=== PATIENT | male | born 1940 | race African-American/Black ===

== ENCOUNTER 2019-10-08 22:54 | Emergency (ER) | payer MEDICARE, MEDICAID, SELFPAY ==
--- NOTE | ~2019-10-08 | CT_ITS ---
EXAMINATION: CT brain wo con DATE: 10/08/2019 23:45 INDICATION: Recent episodes of weakness. Fall. TECHNIQUE: Computed tomography (CT) of the head was performed without intravenous contrast. Sagittal and coronal reconstructions were performed. The mA was adjusted according to patient size. Iterative reconstruction technique was employed. The dose-length product was 681.00 mGy-cm. COMPARISON: head CT dated 08/13/2016 FINDINGS: No fracture. No acute intracranial hemorrhage, acute infarction or abnormal extra axial fluid collect ion. Small old lacunar infarct at the right thalamus. There is moderate scattered white matter hypoat tenuation consistent with chronic small vessel ischemic disease. Symmetric prominence of the sulci an d ventricles consistent with moderate age-appropriate diffuse cerebral volume loss. No mass/mass effe ct. Changes of bilateral intraocular lens replacement. The orbits, paranasal sinuses and mastoid air cells are normal. Intracranial calcified cerebral atherosclerosis is noted. IMPRESSION: 1. No fracture or acute intracranial process. 2. Small old right thalamic lacunar infarct. 3. Chronic age related changes including moderate diffuse volume loss and moderate scattered white ma tter hypoattenuation consistent with chronic small vessel ischemic disease. Reviewed, dictated and finalized at location A. [employer]ATE QUALITY MANAGER IMPRESSION: 1. No fracture or acute intracranial process. 2. Small old right thalamic lacunar infarct. 3. Chronic age related changes including moderate diffuse volume loss and moder ate scattered white matter hypoattenuation consistent with chronic small vessel ischemic disease.
[2019-10-08 22:52] VITALS: BP 146/76; PULSE 86; RESP 21; TEMP 36.7; O2SAT 95
--- NOTE | 2019-10-08 23:09 | ED.FALL ---
HPI - Fall General Chief Complaint: Fall Stated Complaint: gen weakness Time Seen by Provider: 10/08/19 23:10 Source: patient and RN notes reviewed Mode of arrival: EMS Limitations: other (pt is a poor historian) History of Present Illness HPI Narrative: Pt is a 79 y/o male with a Hx of gout, who presents to the ED via EMS with c/o fall happening this evening. He notes that he has had difficulty walking for awhile. Pt states that he accidentally rolled out of his bed this evening. He states that he was too weak to get himself up after the fall. Pt denies sustaining any injuries during the fall. He does report generalized weakness, chronic low back pain, and diarrhea starting after the fall. HPI limited due to the pt being a poor historian. MD complaint: fall Fall from: out of bed Place fall occurred: [facility] Context: other (unknown) Associated symptoms (after fall): weakness (generalized) and other (diarrhea; low back pain (chronic)) Related Data Allergies Allergy/AdvReac Type Severity Reaction Status Date / Time No Known Drug Allergies Allergy Unknown Verified 06/22/19 10:04 Review of Systems Review of Systems: Narrative: ROS limited due to the pt being a poor historian. Constitutional: Constitutional: Reports weakness (generalized) Gastrointestinal: Gastrointestinal: Reports diarrhea Musculoskeletal: Musculoskeletal: Reports back pain (low back pain (chronic)) PMFSH Past Medical History Medical History Anemia Cataracts, bilateral Duodenal ulcer, unspecified as acute or chronic, without hemorrhage or perforation Essential (primary) hypertension Gout, unspecified Iron deficiency anemia Irritable bowel syndrome with diarrhea Nicotine dependence Osteoarthritis Sickle cell disease Surgical History Surgical History Hx of spinal surgery Social History Social History Social History: Pt states that it takes about 3-4 days to smoke a pack of cigarettes Smoking status: Current every day smoker Second hand tobacco smoke exposure: No Alcohol intake: current Exam Narrative: Exam Narrative: GENERAL: Well-appearing, well-nourished, and in no acute distress. HEAD: Normocephalic, atraumatic. ENT: Mucous membranes moist. CHEST: Clear to auscultation. No respiratory distress. HEART: Regular rate and rhythm. Normal peripheral pulses. ABDOMEN: Soft, nontender, nondistended. Back: No midline tenderness of the T or L-spine. No reproducible paraspinal muscular tenderness. EXTREMITIES: Normal range of motion. No edema. No tenderness. NEURO: Alert and oriented x3. PSYCH: Normal mood and affect. Course Course Emergency Course: Patient able ambulate with a walker. Unremarkable evaluation. Vital Signs Vital signs: Vital Signs Temperature 98.1 F 10/08/19 22:52 Pulse Rate 86 10/08/19 22:52 Respiratory Rate 21 H 10/08/19 22:52 Blood Pressure 146/76 H 10/08/19 22:52 Pulse Oximetry 95 10/08/19 22:52 Temperature 98.1 F 10/08/19 22:52 Pulse Rate 88 10/09/19 01:11 Respiratory Rate 20 10/09/19 01:11 Blood Pressure 146/79 H 10/09/19 01:11 Pulse Oximetry 94 10/09/19 01:11 MDM - Fall Lab Data Result diagrams: 10/08/19 23:32 10/08/19 23:32 Labs: Lab Results 10/08/19 10/08/19 Range/Units 23:32 23:32 WBC 4.7 (4.5-10.0) K/mm3 RBC 3.26 L (4.6-6.20) M/mm3 Hgb 10.8 L (14.0-18.0) g/dL Hct 32.6 L (42.0-52.0) % MCV 100.0 (80-100) fl MCH 33.1 (26-34) pg MCHC 33.1 (32-36) g/dl RDW 18.9 H (11.5-14.5) % Plt Count 261 (150-375) k/mm3 MPV 10.4 (7.4-10.4) fl Immature Gran % (Auto) 0.4 (0-0.5) % Neut % (Auto) 47.8 (45.5-73.1) % Lymph % (Auto) 39.8 (18.3-44.2) % [place] % (Auto) 7.5 (2.6-8.5) % Eos % (Auto) 3.9 (0-4.4) % Baso % (Auto) 0.6 (0.2-1.2)
[2019-10-08 23:51] LABS: Blood Urea Nitrogen 12 mg/dL (9-20); Calcium 9.1 mg/dL (8.4-10.2); Carbon Dioxide 20 mmol/L (22-30); Chloride 108 mmol/L (98-107); Estimated Glomerular Filt Rate > 60; Glucose 79 mg/dL (75-110); Potassium 4.5 mmol/L (3.4-5.0); Sodium 144 mmol/L (137-145)
--- NOTE | 2019-10-09 | PC.NURSE ---
pt asked to urinate pt stated he is unable to void at this time.
[2019-10-09 00:04] LABS: Basophils Percent Auto 0.6 % (0.2-1.2); Eosinophils Absolute Auto 0.2 K/mm3 (0-0.3); Eosinophils Percent Auto 3.9 % (0-4.4); Hematocrit 32.6 % (42.0-52.0); Hemoglobin 10.8 g/dL (14.0-18.0); Immature Granulocyte Absolute 0.02 K/mm3 (0.00-0.031); Immature Granulocyte Percent A 0.4 % (0-0.5); Lymphocytes Absolute Auto 1.85 K/mm3 (0.9-3.2); Lymphocytes Percent Auto 39.8 % (18.3-44.2); Mean Corpuscular HGB Conc 33.1 g/dl (32-36); Mean Corpuscular Hemoglobin 33.1 pg (26-34); Mean Platelet Volume 10.4 fl (7.4-10.4); Monocytes Absolute Auto 0.4 K/mm3 (0.1-0.6); Monocytes Percent Auto 7.5 % (2.6-8.5); Neutrophils Absolute Auto 2.2 K/mm3 (1.3-6.7); Neutrophils Percent Auto 47.8 % (45.5-73.1); Platelet Count Result 261 k/mm3 (150-375); Red Blood Count 3.26 M/mm3 (4.6-6.20); Red Cell Distribution Width 18.9 % (11.5-14.5); White Blood Count 4.7 K/mm3 (4.5-10.0)
--- NOTE | 2019-10-09 00:38 | PC.NURSE ---
pt given a urinal pt stood up to urinate. pt unable to void. pt refusing straight cath. EDP notified.
[2019-10-09 00:45] VITALS: BP 139/85; BP 150/86; BP 152/93; PULSE 116; PULSE 91; PULSE 94
[2019-10-09 01:11] VITALS: BP 146/79; PULSE 88; RESP 20; O2SAT 94
[2019-10-09 02:20] VITALS: BP 152/82; PULSE 97; RESP 21; O2SAT 97
--- NOTE | 2019-10-09 02:33 | PC.NURSE ---
Called [facility] to transport patient to his residence...ETA 30 minutes
--- NOTE | 2019-10-09 03:03 | ECG_ITS ---
Measurements Intervals [place] Rate: 85 P: 44 W[place]: 177 QRS: -36 QRSD: 146 T: 44 QT: 426 QTc: 507 Interpretive Statements SINUS RHYTHM VENTRICULAR PREMATURE COMPLEXES POSSIBLE LEFT ATRIAL ENLARGEMENT LEFT AXIS DEVIATION RIGHT BUNDLE BRANCH BLOCK BORDERLINE ST-T WAVE ABNORMALITY- INFERIOR LEADS BASELINE ARTIFACT- I, II, AVR ABNORMAL ECG Electronically Signed On 10-09-2019 7:00:14 BRICK PAVING CHECKER by Kota Cheney D.O.
== END 2019-10-09 03:18 | disposition home or self-care (01) ==
PROVIDERS: Emergency Provider Emergency Medicine; PCP Family Medicine
DX: M54.5 Low back pain (principal); G89.29 Other chronic pain; F17.210 Nicotine dependence, cigarettes, uncomplicated; I10 Essential (primary) hypertension; M10.9 Gout, unspecified; D50.9 Iron deficiency anemia, unspecified; M19.90 Unspecified osteoarthritis, unspecified site; D57.1 Sickle-cell disease without crisis; I49.3 Ventricular premature depolarization; I45.10 Unspecified right bundle-branch block; W06.XXXA Fall from bed, initial encounter; R94.31 Abnormal electrocardiogram [ECG] [EKG]
CPT/HCPCS: 36415; 70450; 80048; 85025; 93005; 99284

== ENCOUNTER 2020-02-29 10:10 | Inpatient (IN) | payer MEDICARE, MEDICAID, SELFPAY ==
[2020-02-29] VITALS (17 sets, daily range): BP systolic 99–150; BP diastolic 56–80; PULSE 55–99; RESP 14–21; TEMP 35.9–37.3; O2SAT 94–100; BMI 24.6
--- NOTE | ~2020-02-29 | CT_ITS ---
EXAMINATION: CT brain wo con EXAM DATE: 02/29/2020 11:18 INDICATION: Weakness. TECHNIQUE: Spiral CT of the head was performed without contrast. Axial, coronal and sagittal images were reviewed. The dose-length product (DLP) for this examination was 605.33 mGy-cm. The exposure w as tailored according to patient size, and iterative reconstruction (ASIR) was used as additional dos e reduction technique. Comparison is made to prior examination from 10/08/2019. FINDINGS: There is no acute intraparenchymal hemorrhage. No evidence of intraparenchymal brain mass lesion. No evidence of acute infarction. Please note that initial head CT has limited sensitivity f or small or acute infarctions. 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 There is moderate pe riventricular and subcortical hypodensity, nonspecific but probably related to small vessel ischemic disease. There is moderate prominence of the sulci and ventricles related to cerebral atrophy. Some falx dural calcifications. There is intracranial carotid arteriosclerosis. There are no extra-axia l collections. There is no mass effect or midline shift. Patient has had bilateral ocular lens surg ayad. Soft tissue is unremarkable. The visualized sinuses and mastoid air cells are well aerated. No significant interval change. IMPRESSION: 1. 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 2. Chronic age related findings. Reviewed, dictated and finalized at location B.
--- NOTE | ~2020-02-29 | XR_ITS ---
EXAMINATION: XR chest 1V portable EXAM DATE: 02/29/2020 11:16 INDICATION: Weakness. TECHNIQUE: Portable AP frontal chest x-ray was obtained. Comparison is made to prior examination from 06/22/2019. FINDINGS: The cardiomediastinal silhouette is prominent but magnified on this AP technique. Prominent basilar reticulation likely patient's chronic interstitial lung disease. No confluent consolidation, pneumothorax or pleural effusion suspected. Left axillary surgical clips. There are bony degenerativ e changes. Thoracic spondylosis, bridging osteophytes. IMPRESSION: 1. Chronic interstitial lung disease. Reviewed, dictated and finalized at location B.
--- NOTE | ~2020-02-29 | CT_ITS ---
EXAMINATION: CT abdomen pelvis w con EXAM DATE: 02/29/2020 13:24 INDICATION: Elevated lactate, GI bleed. TECHNIQUE: Spiral CT of the abdomen and pelvis was performed following intravenous injection of 100 m L Omnipaque 350. Axial, coronal and sagittal images were reviewed. The dose-length product (DLP) fo r this examination was 449.79 mGy-cm. The exposure was tailored according to patient size (auto mA e xposure control), and iterative reconstruction (ASIR) was used as additional dose reduction technique . Comparison is made to prior examination from 06/25/2019. FINDINGS: There is hepatic steatosis without suspicious focal lesion identified. Spleen, adrenal glan ds, pancreas are unremarkable. There is punctate cholelithiasis. Lobular exophytic left renal lesio n measuring 2.8 cm, 57 Hounsfield units, enhancing and most likely renal cell cancer. No obstructive nephropathy. The prostate is unremarkable. The bladder is unremarkable. There is no retroperitonea l or pelvic lymphadenopathy. There is moderate scattered arteriosclerotic disease. The left common femoral artery is severely stenotic or completely occluded. The appendix is normal. The stomach and small bowel are unremarkable. Moderately distended rectosig moid colon, rectal vault measuring 7 cm in dimension, with tortuous sigmoid colon. There is inflammat ion surrounding the rectosigmoid colon, could be stercoral colitis. Most of the colon is relatively c ollapsed. Small foci of gas at the anal verge probably external to the patient. No free intraperitone al gas. Enlarged heart size. There has been interval resolution of previously seen pleural effusion s. Mild basilar interstitial lung disease without superimposed acute process. There are no osteobla stic or osteolytic lesions identified. IMPRESSION: 1. Moderately distended rectosigmoid colon with perirectal inflammation, evidence of stercoral colit is. 2. Left-sided enhancing renal mass, likely RCC. 3. Left common femoral severe stenosis or occlusion. 4. Cholelithiasis. Reviewed, dictated and finalized at location B. IMPRESSION: 1. Moderately distended rectosigmoid colon with perirectal inflammation, evide nce of stercoral colitis. 2. Left-sided enhancing renal mass, likely RCC. 3. Left common femoral severe stenosis or occlusion. 4. Cholelithiasis.
--- NOTE | 2020-02-29 10:29 | ECG_ITS ---
Measurements Intervals [place] Rate: 75 P: 43 ID: 170 QRS: 93 QRSD: 140 T: 0 QT: 448 QTc: 501 Interpretive Statements SINUS RHYTHM VENTRICULAR PREMATURE COMPLEX POSSIBLE LEFT ATRIAL ENLARGEMENT RIGHT BUNDLE BRANCH BLOCK ST-T WAVE ABNORMALITY IN ANTEROLATERAL LEADS- CONSIDER ISCHEMIA ABNORMAL ECG Electronically Signed On 02-29-2020 11:15:59 CDT by Kota Cheney D.O.
[2020-02-29 10:51] LABS: Add Urine Microscopic? YES; Appearance Urine Clear (Clear); Bilirubin Urine Negative (Negative); Blood Urine Negative (Negative); Color Urine Yellow (Yellow); Glucose Urine UA Negative (Negative); Ketones Urine Trace mg/dL (Negative); Leukocyte Esterase Ur Negative LEU/UL (Negative); Mucus Urine Rare /lpf; Nitrate Urine Negative (Negative); Protein Urine Negative (Negative); RBC Urine 0-2 /hpf (0-2); Specific Grav Ur 1.014 (1.001-1.035); Squamous Epithelial Cell Urine Rare /hpf (Few); WBC Urine 0-3 /hpf
[2020-02-29 11:09] LABS: Basophils Percent Auto 0.7 % (0.2-1.2); Eosinophils Percent Auto 0.5 % (0-4.4); Immature Granulocyte Absolute 0.03 K/mm3 (0.00-0.031); Immature Granulocyte Percent A 0.5 % (0-0.5); Lymphocytes Absolute Auto 0.69 K/mm3 (0.9-3.2); Lymphocytes Percent Auto 12.2 % (18.3-44.2); Mean Corpuscular HGB Conc 28.5 g/dl (32-36); Mean Corpuscular Volume 87.7 fl (80-100); Mean Platelet Volume 10.7 fl (7.4-10.4); Monocytes Absolute Auto 0.5 K/mm3 (0.1-0.6); Monocytes Percent Auto 8.5 % (2.6-8.5); Neutrophils Absolute Auto 4.4 K/mm3 (1.3-6.7); Neutrophils Percent Auto 77.6 % (45.5-73.1); Platelet Count Result 288 k/mm3 (150-375); Red Blood Count 2.36 M/mm3 (4.6-6.20); Red Cell Distribution Width 19.7 % (11.5-14.5); White Blood Count 5.7 K/mm3 (4.5-10.0)
[2020-02-29 11:22] LABS: Alanine Aminotransferase 18 U/L (4-50); Alkaline Phosphatase 76 U/L (38-126); Aspartate Amino Transferase 59 U/L (17-59); Bilirubin,Total 0.6 mg/dL (0.2-1.3); Blood Urea Nitrogen 24 mg/dL (9-20); Carbon Dioxide 20 mmol/L (22-30); Chloride 109 mmol/L (98-107); Estimated CRCL calculation 30 ml/min; Estimated Glomerular Filt Rate 44; Glucose 108 mg/dL (75-110); Lipase 22 U/L (23-300); Magnesium 1.8 mg/dL (1.6-2.3); Potassium 4.2 mmol/L (3.4-5.0); Sodium 141 mmol/L (137-145)
[2020-02-29 11:23] LABS: Hematocrit 20.7 % (42.0-52.0); Hemoglobin 5.9 g/dL (14.0-18.0)
[2020-02-29] MEDS: PANTOPRAZOLE SODIUM IV 40 MG VIAL 80 MG IV PUSH (11:25)
[2020-02-29 11:26] LABS: Lactic Acid Reflex 3.2 mmol/L (0.7-2.1)
[2020-02-29 11:27] LABS: INR 1.1
[2020-02-29 11:28] LABS: Partial Thromboplastin Time 26.5 SECONDS (22.3-36.8)
[2020-02-29 11:33] LABS: Hypochromasia 2+ (NORMAL); Platelet Estimate Adequate (Adequate)
[2020-02-29 11:34] LABS: Ovalocytes 1+ (NORMAL); Stomatocytes 2+ (NORMAL)
--- NOTE | 2020-02-29 12:31 | ED.WEAKNESS ---
HPI - Weakness General Chief complaint: Weakness Stated complaint: WEAKNESS Time Seen by Provider: 02/29/20 10:26 Source: patient and EMS Mode of arrival: EMS Limitations: other (poor historian) History of Present Illness HPI Narrative: This patient is an 79 year old male who presents for evaluation of generalized weakness. EMS states patient states he is not feeling well, and he was last seen on Saturday normal. EMS found patient to be hypotensive with BP 80/40. He was given 200 ml of fluids and his blood pressure improved. Nursing staff found that patient has melena in his depends. He denies chest pain, sob, fever, or abdominal pain. He does have nausea. On review of his records, patient has history of duodenal ulcer last year. MD Complaint: generalized weakness Related Data Allergies Allergy/AdvReac Type Severity Reaction Status Date / Time No Known Drug Allergies Allergy Unknown Verified 06/22/19 10:04 Review of Systems Review of Systems: All systems reviewed & are unremarkable except as noted in HPI and below Constitutional: Constitutional: Denies chills, Denies fever(s) and Reports weakness Cardiovascular: Cardiovascular: Denies chest pain Respiratory: Respiratory: Denies cough and Denies dyspnea Gastrointestinal: Gastrointestinal: Denies abdominal pain, Reports nausea and Denies vomiting Neurologic: Denies headache(s), Denies focal weakness and Denies numbness Endocrine: Endocrine: Reports fatigue PMFSH Past Medical History Medical History Anemia Cataracts, bilateral Duodenal ulcer, unspecified as acute or chronic, without hemorrhage or perforation Essential (primary) hypertension Gout, unspecified Iron deficiency anemia Irritable bowel syndrome with diarrhea Nicotine dependence Osteoarthritis Sickle cell disease Social History Social History Social History: Pt states that it takes about 3-4 days to smoke a pack of cigarettes Smoking status: Current every day smoker Second hand tobacco smoke exposure: No Alcohol intake: current Gender identity (if verbalized by the patient): Male Exam Const: General: no acute distress and alert Orientation/consciousness: patient oriented x3 HENMT: Head: normocephalic and atraumatic Face and sinus: face symmetric Mouth: Yes lip normal Teeth and gingiva: edentulous Eyes: Pupils: Equal, round and reactive pupils present EOM: EOMs intact bilaterally Chest: Chest palpation & inspection: normal inspection of the chest Resp: Effort & Inspection: normal respiratory effort, no retractions and no use of accessory muscles Auscultation: clear to auscultation bilaterally Cardio: Rate: regular rate Rhythm: regular rhythm Heart sounds: no murmurs GI: GI Palp: Yes Soft to palpation, No Tenderness to palpation present (GI), No Guarding due to palpation present (GI) and No Rigid due to palpation Other: black tarry stools in depends Skin: General skin exam: normal color Neuro: General: patient oriented x3 and moves all extremities Extrem: General: no pedal edema Psych: Mental Status: mental status grossly normal Affect: normal affect Course Consultations Consultation #1: I discussed case with Dr. Magaña and he recommends CT to evaluate for bowel ischemia Date: 02/29/20 Time: 12:31 Consultation #2: I have discsused elevated troponin with Serena Beltran who agrees to consult. Date: 02/29/20 Time: 14:46 Vital Signs Vital signs: Vital Signs Temperature 98.8 F 02/29/20 10:08 Pulse Rate 79 02/29/20 10:08 Respiratory Rate 21 H 02/29/20 10:08 Blood Pressure 99/57 L 02/29/20 10:08 Pulse Oximetry 94 02/29/20 10:08 Temperature 96.6 F L 02/29/20 17:36 Pulse Rate 84 02/29/20 17:36 Respiratory Rate 20 02/29/20 17:36 Blood Pressure 149/77 H 02/29/20 17:36 Pulse Oximetry 95 02/29/20 17:36 MDM - Weakness
[2020-02-29 14:17] LABS: Reflex Lactic Acid Yes or No Add Lactic
--- NOTE | 2020-02-29 14:51 | PC.NURSE ---
1450 large bowel movement noted new diaper and pad applied
[2020-02-29 16:17] LABS: Lactic Acid 2.1 mmol/L (0.7-2.1)
[2020-02-29 17:53] LABS: Hematocrit 22.3 % (42.0-52.0)
[2020-02-29 17:58] LABS: Hemoglobin 6.3 g/dL (14.0-18.0)
[2020-02-29] MEDS: LACTATED RINGERS 1,000 ML 125 ML IV CONT (18:56)
--- NOTE | 2020-02-29 19:10 | PM.IMHP ---
H&P: HPI History of Present Illness Chief complaint: uoper gi hemmorhage,anemia,elevated troponin Narrative: Rick Martinez is a 79 year old male with hx of GI bleed and CAD here for generalized weakness and found to have Hgb 5.9 and elevated Troponin. Noam is alert and oriented but very difficult to obtain history. Patient is extremely vague and even evasive. Talib lives in the [place] [facility] and has a wound care center consultant 4x/week to come in to help with meal prep and cleaning. Patient states he contacted EMS because he couldn't stand up but this has been going on for the past 1-2 months. He is mostly bedbound but later states he walks with a walker. He has been having black stools but takes iron and the duration of this symptoms is unclear. He denies maroon or red stools. No abd pain but having nausea and vomiting. no blood in the emesis but again unclear on duration. No fever or chills. He is on protonix (from the pill bottles brought in) but he is not sure if he takes NSAIDs. He has been having chest pain off and on but he can provide no further details. The attempt to obtain a hx was abandoned at that point. On chart review, joanna had an EGD in 2014 showing duodenal polyps that were removed. More recently in Sep 2018, he was hospitalized for GI bleed. He had a EGD that was normal and a colonoscopy showing IH (with stigmata of bleeding) and with sigmoid polyp that was removed (path was tubular adenomas). Patient noted to be iron deficient in June 2019. LHC in 2014 showing EF 30% with 2 vessel CAD involving high grade lesions but not ideal for intervention so plan was for aggressive medical management. In the field, patient was HoTN at 80/40. He was given IV fluid and brought to the ER for evaluation. In the ER, he had a BP of 99/57 with a Hgb 5.9 and elevated Trop. EKG reviewed showing ST-T wave changes in the anteriolateral leads but appears similar to prior EKG in October. CT brain showing no acute findings. CT A/P showing moderately distended rectosigmoid colon with perirectal inflammation (consider stercoral colitis), left-sided enhancing renal mass, likely RCC (which is known), left common femoral severe stenosis or occlusion and cholelithiasis. Lactic acid 3.2 with CHARLIE with cr at 1.8. Patient was treated with Protonix and IVF. He was admitted to IMU. 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 Iron deficiency anemia Irritable bowel syndrome with diarrhea Nicotine dependence Osteoarthritis Renal mass seen by urology 2018 with concern for RCC Sickle cell disease sickle cell trait Substance abuse Cocaine Surgical History Surgical History Hx of left knee surgery for sepetic arthritis 2009 Hx of spinal surgery Family History Family History Mother Patient's mother is , Onset Age: 89 Family history of kidney disease, Onset Age: 78 Acute myocardial infarction, Onset Age: 89 Father Family history of malignant neoplasm Patient's father is Sibling Patient's brother is , Onset Age: 72 Acute myocardial infarction, Onset Age: 72 Social History Social History Social History: Pt states that it takes about 3-4 days to smoke a pack of cigarettes. he has smoked most of his life. He still drinks al
--- NOTE | 2020-02-29 20:06 | ADMGEN ---
This patient, Rick Martinez, was admitted to IMU Room 205-01. Patient/family oriented to hospital policies and general routines including ID bracelet, bed and alarms, visiting hours, pain management, procedures, bathroom and other care routines, personal items, smoking policy, room service/diet, and visiting hours. Valuables list has been completed. Information on how to activate the Rapid Response Team has been discussed. Patient/Family are encouraged to report perceived risks to care and to ask questions if they do not understand what they are told or what they should do. arrived at approx 1710 02/29/20
[2020-02-29] MEDS: PANTOPRAZOLE SODIUM IV 40 MG VIAL IV PUSH (22:05)
[2020-02-29] MEDS: THIAMINE HCL 200 MG/2 ML VIAL 100 MG IV PUSH (22:05)
[2020-02-29] MEDS: SODIUM CHLORIDE 0.9% IV 250 ML 30 ML IV CONT (22:07)
[2020-02-29] MEDS: FOLIC ACID 1 MG/0.2 ML INJ IV PUSH (22:07)
[2020-02-29] MEDS: TUBING, BLOOD PLUM PUMP TUBING 1 EACH XX (22:07)
[2020-02-29] MEDS: metroNIDAZOLE 250MG/ISO 50 ML 250 MG/50 ML BAG 50 MG IVPB (23:50)
[2020-03-01] VITALS (20 sets, daily range): BP systolic 109–161; BP diastolic 50–89; PULSE 60–95; RESP 14–20; TEMP 36.3–37.1; O2SAT 92–100; BMI 24.6
--- NOTE | 2020-03-01 | ECHO_ITS ---
Patient Info Name: Rick Martinez Age: 79 years : 1940 Gender: Male Ht: 70 in Wt: 172 lbs BSA: 1.97 m2 HR: 80 bpm BP: 130 / 71 mmHg Heart Rhythm: Sinus Rhythm Technical Quality: Good Exam Date: 03/01/2020 1:22 PM Exam Location: [facility] Pulmonary Patient Status: Inpatient Admit Date: 02/29/2020 Staff Ordering Physician: Farhan Ram MD Field Operator: lJ Santo RDCS Attending Provider: Darío Magaña MD Referring Physician: Yo MANLEY; Exam Type: CA echo doppler color flow Study Info Indications 414.00 - Coronary atherosclerosis Complete two-dimensional, color flow and Doppler transthoracic echocardiogram is performed. Strain analysis performed. History/Risk Factors Upper GIB w/ profound anemia; elevated trops, CAD, COPD, HTN, EtOH, CHF. Summary 1. Left ventricular chamber dimension is normal. 2. Left ventricular systolic function is mildly reduced, estimated at 40-45%. 3. The posterior wall as well as the base of the inferior wall is hypodynamic. 4. There is mild to moderate mitral valve regurgitation. 5. Compared with 2019, segmental LV wall motion abnormalities are seen as noted above. Left Ventricle Left ventricular chamber dimension is normal. Left ventricular systolic function is mildly reduced, estimated at 40-45%. The left ventricular diastolic function is grade I diastolic dysfunction. The posterior wall as well as the base of the inferior wall is hypodynamic. Right Ventricle Right ventricular chamber dimension is normal. Left Atria Left atrial chamber dimension is mildly enlarged. Right Atria Right atrial chamber dimension is mildly enlarged. Aortic Valve The aortic valve is normal. Pulmonic Valve The pulmonic valve is not well visualized. Mitral Valve The mitral valve has normal leaflets. There is mild to moderate mitral valve regurgitation. Tricuspid Valve The tricuspid valve leaflets are normal. There is trace tricuspid valve regurgitation. Pericardium/Pleural The pericardium appears normal. Aorta The aortic root size at the sinus of Valsalva is normal. Left Ventricular Outflow Tract Name Value Normal LVOT 2D LVOT Diameter 2.1 cm LVOT Doppler LVOT Peak Gradient 5 mmHg LVOT Mean Gradient 2 mmHg LVOT VTI 18 cm LVOT VTI/AV VTI Ratio 0.8 LVOT Stroke Volume 61 ml LVOT CO 5.1 l/min LVOT CI 2.6 l/min/m2 Mitral Valve Name Value Normal MV Doppler MV Peak Gradient 2 mmHg MV Mean Gradient 1 mmHg MV Decel Barron 628 cm/s2 MV PHT 44 ms
[2020-03-01] MEDS: metroNIDAZOLE 250MG/ISO 50 ML 250 MG/50 ML BAG 50 MG IVPB ×4 (05:41→23:46)
[2020-03-01 06:03] LABS: Hematocrit 28.4 % (42.0-52.0); Hemoglobin 9.1 g/dL (14.0-18.0); Mean Corpuscular Hemoglobin 26.8 pg (26-34); Mean Corpuscular Volume 83.8 fl (80-100); Mean Platelet Volume 10.6 fl (7.4-10.4); Platelet Count Result 208 k/mm3 (150-375); Red Blood Count 3.39 M/mm3 (4.6-6.20); Red Cell Distribution Width 18.6 % (11.5-14.5); White Blood Count 15.5 K/mm3 (4.5-10.0)
[2020-03-01 06:19] LABS: Alanine Aminotransferase 14 U/L (4-50); Albumin Level 3.4 g/dL (3.5-5.1); Alkaline Phosphatase 63 U/L (38-126); Aspartate Amino Transferase 40 U/L (17-59); Bilirubin,Total 1.5 mg/dL (0.2-1.3); Blood Urea Nitrogen 24 mg/dL (9-20); Calcium 8.6 mg/dL (8.4-10.2); Carbon Dioxide 23 mmol/L (22-30); Chloride 106 mmol/L (98-107); Estimated CRCL calculation 34 ml/min; Estimated Glomerular Filt Rate 51; Glucose 113 mg/dL (75-110); Magnesium 1.7 mg/dL (1.6-2.3); Potassium 4.4 mmol/L (3.4-5.0); Sodium 136 mmol/L (137-145)
[2020-03-01 07:03] LABS: Iron 99 ug/dL (49-181)
[2020-03-01 07:14] LABS: Percent Iron Saturation 24 % (20-50)
[2020-03-01 07:30] LABS: Hemoglobin A1C 5.2 % (<5.7)
[2020-03-01 07:35] LABS: Folic Acid 15.1 ng/mL (2.76->20)
[2020-03-01 07:36] LABS: Thyroid Stimulating Hormone Reflex 0.989 uIU/mL (0.465-4.68)
--- NOTE | 2020-03-01 08:00 | ECG_ITS ---
Measurements Intervals [place] Rate: 80 P: 48 [place]: 161 QRS: 95 QRSD: 138 T: 51 QT: 435 QTc: 504 Interpretive Statements SINUS RHYTHM POSSIBLE LEFT ATRIAL ENLARGEMENT RIGHT BUNDLE BRANCH BLOCK ST-T WAVE ABNORMALITY IN ANTEROLATERAL LEADS- CONSIDER ISCHEMIA ABNORMAL ECG Electronically Signed On 03-01-2020 10:22:55 CDT by Kota Cheney D.O.
--- NOTE | 2020-03-01 08:31 | PM.CNCAR ---
Assessment and Plan Assessment and plan (1) Non-ST elevation CO (NSTEMI): Code(s): I21.4 - Non-ST elevation (NSTEMI) myocardial infarction Status: Acute Assessment and Plan: 79-year-old male known CAD, PAD, diastolic dysfunction, hypertension, anemia, history of GI bleed. Patient admitted with altered mental status, GI bleed, and found to be severely anemic. His troponins are elevated, and EKG shows ST-T abnormality suggestive of ischemia. Patient does have known history of coronary artery disease. -at this time, recommend workup for patient's GI bleed by Gastroenterology. FOBT is pending. -patient does not appear to have any active ischemic symptoms at present. Continue supportive care for now. - check echocardiogram with Doppler -monitor on telemetry - (2) Acute upper GI bleed: Code(s): K92.2 - Gastrointestinal hemorrhage, unspecified Status: Acute Assessment and Plan: Management as per primary team and Gastroenterology (3) Anemia: Code(s): D64.9 - Anemia, unspecified Status: Acute Assessment and Plan: As above History of Present Illness History of Present Illness Consult date/time: 03/01/20 08:31 Date of service 03/01/2020 Reason for consult: Elevated troponins Requesting physician:Dr Garcia Chief complaint: Generalized weakness HPI: 79-year-old male with known CAD, PAD, diastolic dysfunction, hypertension, anemia, history of GI bleed. Patient was brought to [facility] on 02/29/2020 via EMS with generalized weakness. Patient was apparently found to be hypertensive with blood pressure 80/40. He was given IV fluids. Apparently, patient was found to have melena in his diaper in the longterm. Patient was found to be severely anemic with a hemoglobin of 5.9 grams/deciliters at presentation. Troponins are elevated with peak troponin level of the 4.07 at present. EKG which I personally evaluated showed sinus rhythm, PVC, diffuse ST-T abnormality suggestive of ischemia. At the time of evaluation, patient was lying on the bed. He appeared to be somewhat confused. He denies chest pain or shortness of breath at rest. Chest x-ray on this admission showed Chronic interstitial lung disease. Head CT scan showed old infarct. CT scan of the abdomen and pelvis showed Moderately distended rectosigmoid colon with perirectal inflammation, evidence of stercoral colitis;Left-sided enhancing renal mass, likely RCC; Left common femoral severe stenosis or occlusion; Cholelithiasis. Review of patient's old medical records indicate that he had cardiac catheterization done on 04/05/[address] Mcclelland which was reported to show 40% mid LAD stenosis, 90% stenosis in the mid LCX, 90% stenosis distal RCA at the origin of the RPL branch. He was managed medically. Echocardiogram from 03/12/2015 showed LVEF 65%, grade 1 diastolic dysfunction, mild biatrial enlargement, mild MR, mild TR, RVSP 56 mmHg. Reason For Visit: uoper gi hemmorhage,anemia,elevated troponin Review of Systems Constitutional: Constitutional: Denies chills, Reports fatigue and Denies headache(s) Eyes: Eyes: Reports as per HPI, Denies change in vision, Denies loss of vision and Denies eye pain ENT: Reports as per HPI, Reports Normal hearing present, Denies headache(s), Denies lip swelling, Denies epistaxis and Denies sore throat Cardiovascular: Cardiovascular: Reports as per HPI, Denies chest pain, Denies syncope, Denies irregular heart rhythm, Denies lightheadedness and Denies dyspnea Respiratory: Respiratory: Reports as per HPI, Denies cough, Denies dyspnea and Denies wheezing Gastrointestinal: Gastrointestinal: Reports as per HPI, Denies abdominal pain, Denies melena, Denies nausea and Denies vomiting Comments: Blood in stool Genitourinary: Genitourinary: Reports as per HPI Musculoskeletal: Musculoskeletal: Reports as per HPI, Denies myalgias, Denies muscle cramps and Denies muscle weakness Integumentary/Breasts
[2020-03-01] MEDS: allopurinoL 100 MG TABLET PO ×2 (09:35→17:29)
[2020-03-01] MEDS: THIAMINE HCL 200 MG/2 ML VIAL 100 MG IV PUSH (09:35)
[2020-03-01] MEDS: PEG (High)/E-LYTE SOLN 4,000 ML BTL 4000 ML PO (09:36)
[2020-03-01] MEDS: PANTOPRAZOLE SODIUM IV 40 MG VIAL IV PUSH ×2 (09:36→20:23)
[2020-03-01] MEDS: FOLIC ACID 1 MG/0.2 ML INJ IV PUSH (09:41)
[2020-03-01 10:07] LABS: Hematocrit 29.3 % (42.0-52.0); Hemoglobin 9.2 g/dL (14.0-18.0)
--- NOTE | 2020-03-01 10:48 | WPDGICN ---
Assessment and Plan Assessment and plan (1) Anemia: Code(s): D64.9 - Anemia, unspecified Status: Acute Assessment and Plan: Patient with recurrent chronic anemia. No obvious signs of GI blood loss blood loss over recent years. Plan is to guaiac stools. Iron studies will be obtained. Because of rather profound anemia repeat colonoscopy in EGD planned in the morning after preparation today. Patient does have a distant history of duodenal polyps that were benign. Has a history of upper GI angiodysplasias in the 2016. And he has had colon polyps at 1 point in the past. (2) Sickle cell trait: Code(s): D57.3 - Sickle-cell trait Status: Acute (3) Renal mass: Code(s): N28.89 - Other specified disorders of kidney and ureter Status: Acute Assessment and Plan: Patient known to have a mass on is kidney from previous CT scans. Previously anemia was attributed to this mass. Urology follow-up may be necessary. (4) COPD (chronic obstructive pulmonary disease): Code(s): J44.9 - Chronic obstructive pulmonary disease, unspecified Status: Acute (5) Diabetes mellitus: Code(s): E11.9 - Type 2 diabetes mellitus without complications Status: Acute (6) Alcoholism: Code(s): F10.20 - Alcohol dependence, uncomplicated Status: Acute Assessment and Plan: Patient has a history of alcoholism. It is unclear if he is actively drinking at this time. GI Consult Note Consult date/time: 03/01/20 10:48 HPI: Rick Martinez is a 79 year old male seen in evaluation at the request of the emergency room. Patient currently lives in assisted living situation. He became very weak apparently had difficulty going down to the dining room. For this reason he was taken to the emergency room and found to have profound anemia. Patient gives a very difficult history an and unreliable history. His known to our service from previous hospital admissions. He has a long history of anemia. Previously found to be iron deficient. In 2014 he had duodenal polyps by endoscopy. In 2015 a colonoscopy an EGD were performed angiodysplasias were identified in the upper GI exam. The colonoscopy was unremarkable. A benign polyp was removed from the colon. In September of 2018.. At the present time patient denies abdominal pain. No obvious signs of GI bleeding are reported. His stools may be dark according to some reports. Patient is unable to confirm this. No obvious bruising nose bleeds or blood in his urine. He is known to have a mass in his kidney by previous exam. It is unclear what investigation is been performed for this renal cell mass. Previously stools were Hemoccult negative. And with anemia was attributed to the renal cell mass. 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 Iron deficiency anemia Irritable bowel syndrome with diarrhea Nicotine dependence Osteoarthritis Renal mass seen by urology 2018 with concern for RCC Sickle cell disease sickle cell trait Substance abuse Cocaine Surgical History Surgical History Hx of left knee surgery for sepetic arthritis 2009 Hx of spinal surgery Family History Family History Mother Patient's mother is , Onset Age: 89 Family history of kidney disease, Onset Age: 78 Acute myocardial infar
--- NOTE | 2020-03-01 15:04 | PM.IMPN ---
Progress Note: A&P Assessment and Plan (1) Shock: Code(s): R57.9 - Shock, unspecified Status: Acute Assessment and Plan: BP 80/40 in the field but responded quickly to fluid bolus and transfusion. . Hold metoprolol. Monitor closely in the IMU. PT/OT eventually. (2) Acute upper GI bleed: Code(s): K92.2 - Gastrointestinal hemorrhage, unspecified Status: Acute Assessment and Plan: Patient with dark stools but is on iron. He has had multiple admissions for anemia from presumed GI blood loss. He does take colchicine which can cause aplastic anemia but doubt this as a cause. Also unclear if he takes OTC NSAIDs. Will guaiac stools. Hemoglobin 9.2 this morning. Continue Protonix. GI for EGD and colon 03/02 (3) Non-ST elevation MA (NSTEMI): Code(s): I21.4 - Non-ST elevation (NSTEMI) myocardial infarction Status: Acute Assessment and Plan: Troponin elevated at 1.49 and essentially unchanged on repeat. Unclear if he is having ischemic symptoms but more likely related to HoTN and profound anemia. C noted above so patient with known CAD and CT scan here showing PAD. Check ECHO. (4) Colitis: Code(s): K52.9 - Noninfective gastroenteritis and colitis, unspecified Status: Acute Assessment and Plan: CT scan showing moderately distended rectosigmoid colon with perirectal inflammation, possibly stercoral colitis. No fevers and WBC normal. He has minor abd discomfort on exam. Will add Flagyl and monitor for now. (5) CHARLIE (acute kidney injury): Code(s): N17.9 - Acute kidney failure, unspecified Status: Acute Assessment and Plan: Baseline Cr is normal. Probably ATN from the HoTN and profound anemia. Colchicine could contribute to CHARLIE. IV fluids started. Contineu to monitor. Creatinine down to 1.6 today (6) Alcoholism: Code(s): F10.20 - Alcohol dependence, uncomplicated Status: Acute Assessment and Plan: Unclear if he drinks and how much. Thiamine and Folate. WA protocol and have Ativan available as needed. (7) Iron deficiency anemia: Code(s): D50.9 - Iron deficiency anemia, unspecified Status: Chronic Assessment and Plan: Iron deficiency noted by labs last year. Patient currently on oral iron which is probably contributing to his dark stools. Repeat iron studies suggestion of iron deficiency with low ferritin and high TIBC, will give IV iron while here. (8) Sickle cell trait: Code(s): D57.3 - Sickle-cell trait Status: Acute Assessment and Plan: Patient with SC trait which could contribute to his low Hgb. 2009 Hgb Electropheresis showing S 29.6% and A at 66.7% (9) Renal mass: Code(s): N28.89 - Other specified disorders of kidney and ureter Status: Acute Assessment and Plan: This has been noted for many years and being followed by urology. Patient should plan to follow up at next scheduled appointment. (10) Nicotine dependence: Code(s): F17.200 - Nicotine dependence, unspecified, uncomplicated Status: Chronic Assessment and Plan: Educated about the benefits of smoking cessation. He has nicotine patches in his bag - he was educated also not to smoke with the patches. (11) Essential (primary) hypertension: Code(s): I10 - Essential (primary) hypertension Status: Chronic Assessment and Plan: As above. ANti-HTN meds on hold for now. (12) DVT prophylaxis: Code(s): Z29.9 - Encounter for prophylactic measures, unspecified Status: Acute Assessment and Plan: SCDs Subjective Date/time seen: 03/01/20 15:04 Interval history: Date of visit 03/01 79-year-old black male admitted with severe anemia hypotension and elevated troponin. No chest pain or shortness breath and feels better after 3 units of packed cells. Iron studies with TIBC at upper limit of normal in f
[2020-03-01] MEDS: TUBING, BLOOD PLUM PUMP TUBING 1 EACH XX (20:23)
[2020-03-02] VITALS (19 sets, daily range): BP systolic 120–150; BP diastolic 67–85; PULSE 67–93; RESP 12–21; TEMP 35.7–36.7; O2SAT 92–99
[2020-03-02 04:49] LABS: Basophils Percent Auto 0.2 % (0.2-1.2); Eosinophils Absolute Auto 0.1 K/mm3 (0-0.3); Eosinophils Percent Auto 0.8 % (0-4.4); Hematocrit 30.6 % (42.0-52.0); Hemoglobin 9.5 g/dL (14.0-18.0); Immature Granulocyte Absolute 0.08 K/mm3 (0.00-0.031); Immature Granulocyte Percent A 0.7 % (0-0.5); Lymphocytes Absolute Auto 0.97 K/mm3 (0.9-3.2); Lymphocytes Percent Auto 8.9 % (18.3-44.2); Mean Corpuscular Volume 83.6 fl (80-100); Mean Platelet Volume 11.4 fl (7.4-10.4); Monocytes Absolute Auto 0.7 K/mm3 (0.1-0.6); Monocytes Percent Auto 6.6 % (2.6-8.5); Neutrophils Absolute Auto 9.1 K/mm3 (1.3-6.7); Neutrophils Percent Auto 82.8 % (45.5-73.1); Platelet Count Result 218 k/mm3 (150-375); Red Blood Count 3.66 M/mm3 (4.6-6.20); Red Cell Distribution Width 18.9 % (11.5-14.5); White Blood Count 10.9 K/mm3 (4.5-10.0)
[2020-03-02 05:03] LABS: Blood Urea Nitrogen 17 mg/dL (9-20); Calcium 8.6 mg/dL (8.4-10.2); Carbon Dioxide 25 mmol/L (22-30); Chloride 106 mmol/L (98-107); Estimated CRCL calculation 45 ml/min; Estimated Glomerular Filt Rate > 60; Glucose 93 mg/dL (75-110); Potassium 3.6 mmol/L (3.4-5.0); Sodium 138 mmol/L (137-145)
[2020-03-02] MEDS: metroNIDAZOLE 250MG/ISO 50 ML 250 MG/50 ML BAG 50 MG IVPB ×3 (05:30→18:10)
[2020-03-02] MEDS: LACTATED RINGERS 1,000 ML 150 ML IV CONT (09:14)
--- NOTE | 2020-03-02 09:38 | WPDANESEPPF ---
Anes - Initial Pre Proc Eval Procedure: Operation Date: 03/02/20 10:00 Proposed Procedures p Esophagogastroduodenoscopy & Colonoscopy - Gilson Pickens MD Date/Time: 03/02/20 09:38 Surgeon: Braden Magaña MD Pre Op Diagnosis: uoper gi hemmorhage,anemia,elevated troponin Patient Data Age: 79 Gender: M Height: 5 ft 10 in Weight: 78.6 kg Last Vital Signs Temp 96.3 F L 03/02/20 09:11 Pulse 79 03/02/20 09:11 Resp 16 03/02/20 09:11 BP 148/71 H 03/02/20 09:11 Pulse Ox 93 03/02/20 09:11 Allergies Allergy/AdvReac Type Severity Reaction Status Date / Time No Known Drug Allergies Allergy Unknown Other Verified 03/02/20 09:08 Home Medications Medication Instructions Recorded Confirmed Type allopurinol 100 mg tablet 100 mg PO BID #60 tablet 10/02/19 02/29/20 Rx colchicine 0.6 mg tablet 0.6 mg PO BID #60 tablet 10/02/19 02/29/20 Rx ergocalciferol (vitamin D2) 1,250 50,000 unit PO WEEKLY #12 cap 10/02/19 02/29/20 Rx mcg (50,000 unit) capsule ferrous sulfate 325 mg (65 mg 325 mg PO DAILY #30 tablet 10/02/19 02/29/20 Rx iron) tablet metoprolol succinate 25 mg 25 mg PO DAILY #30 tablet 10/02/19 02/29/20 Rx tablet,extended release 24 hr pantoprazole 20 mg tablet,delayed 20 mg PO QAM #30 tablet 10/02/19 02/29/20 Rx release hydrocodone-acetaminophen [Premier] 1 tablet PO Q8H PRN 02/29/20 02/29/20 History Laboratory Tests 03/01/20 03/02/20 03/02/20 09:55 04:16 04:16 WBC 10.9 K/mm3 H K/mm3 (4.5-10.0) RBC 3.66 M/mm3 L M/mm3 (4.6-6.20) Hgb 9.2 g/dL L g/dL 9.5 g/dL L g/dL (14.0-18.0) (14.0-18.0) Hct 29.3 % L % 30.6 % L % (42.0-52.0) (42.0-52.0) MCV 83.6 fl fl (80-100) MCH 26.0 pg pg (26-34) MCHC 31.0 g/dl L g/dl (32-36) RDW 18.9 % H % (11.5-14.5) Plt Count 218 k/mm3 k/mm3 (150-375) MPV 11.4 fl H fl (7.4-10.4) Immature Gran % (Auto) 0.7 % H % (0-0.5) Neut % (Auto) 82.8 % H % (45.5-73.1) Lymph % (Auto) 8.9 % L % (18.3-44.2) Mer[place]ether % (Auto) 6.6 % % (2.6-8.5) Eos % (Auto) 0.8 % % (0-4.4) Baso % (Auto) 0.2 % % (0.2-1.2) Lymph # (Auto) 0.97 K/mm3 K/mm3 (0.9-3.2) [place]ether # (Auto) 0.7 K/mm3 H K/mm3 (0.1-0.6) Eos # (Auto) 0.1 K/mm3 K/mm3 (0-0.3) Baso # (Auto) 0.0 K/mm3 K/mm3 (0.0-0.1) Abs Immat Gran (auto) 0.08 K/mm3 H K/mm3 (0.00-0.031) Absolute Neuts (auto) 9.1 K/mm3 H K/mm3 (1.3-6.7) Absolute Nucleated RBC 0.0 K/mm3 K/mm3 (0.0-0.012) Nucleated RBC % 0.0 % % (0.0-0.2) Sodium 138 mmol/L mmol/L (137-145) Potassium 3.6 mmol/L mmol/L (3.4-5.0) Chloride 106 mmol/L mmol/L (98-107) Carbon Dioxide 25 mmol/L mmol/L (22-30) BUN 17 mg/dL mg/dL (9-20) Creatinine 1.20 mg/dL mg/dL (0.7-1.3) Estim Creat Clear Calc 45 ml/min ml/min Estimated GFR > 60 (59 - ) Glucose 93 mg/dL mg/dL (75-110) Calcium 8.6 mg/dL mg/dL (8.4-10.2) Patient hx anesthesia problems: none Family hx anesthesia problems: none PMFSH Past Medical History Medical History Anemia B12 deficiency Cataracts, bilateral COPD (chronic obstructive pulmonary disease) Diabetes mellitus Duodenal ulcer, unspecified as acute or chronic, without hemorrhage or perforation Essential (primary) hypertension Gout, unspecified History of CVA (cerebrovascular accident) 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 Iron deficiency anemia Irritable bowel syndrome with diarrhea Nicotine dependence Osteoarthritis Renal mass seen by urology 2018 with concern for RCC Sickle cell disease sickle cell trait Substance abuse Cocaine Surgical History Surgical History (Reviewed 03/01/20 @ 10:
--- NOTE | 2020-03-02 09:55 | P.CDI_ITS ---
CDI Query Clarification Request - Shock has been documented - Acute GI bleed has been documented and NSTEMI has been documented. Please further specify type/cause of shock: * Hemorrhagic * Cardiogenic * Both hemorrhagic and cardiogenic * Other * Unable to determine
--- NOTE | 2020-03-02 09:55 | WPDCDIQUERY2 ---
CDI Query Clarification Request - Shock has been documented - Acute GI bleed has been documented and NSTEMI has been documented. Please further specify type/cause of shock: Hemorrhagic Cardiogenic Both hemorrhagic and cardiogenic Other Unable to determine
[2020-03-02] MEDS: SIMETHICONE ORAL SUSPENSION 20 MG/0.3 ML 30 ML BOTTLE 0.6 ML PO (10:25)
[2020-03-02] MEDS: THIAMINE HCL 200 MG/2 ML VIAL 100 MG IV PUSH (13:12)
[2020-03-02] MEDS: FOLIC ACID 1 MG/0.2 ML INJ IV PUSH (13:12)
[2020-03-02] MEDS: allopurinoL 100 MG TABLET PO ×2 (13:13→18:06)
[2020-03-02] MEDS: PANTOPRAZOLE SODIUM IV 40 MG VIAL IV PUSH ×2 (13:13→20:16)
--- NOTE | 2020-03-02 13:32 | PM.IMPN ---
Progress Note: A&P Assessment and Plan (1) Shock: Code(s): R57.9 - Shock, unspecified Status: Acute Assessment and Plan: BP 80/40 in the field. Treated with IV fluids and transfusion and BP stable now. metoprolol restarted today . Monitor closely in the IMU. Cause of shock unknown, doubt acute hemmorrhagic , could be part cardio induced (2) Acute upper GI bleed: Code(s): K92.2 - Gastrointestinal hemorrhage, unspecified Status: Acute Assessment and Plan: Patient with dark stools but is on iron. He has had multiple admissions for anemia from presumed GI blood loss. . Also unclear if he takes OTC NSAIDs. Will guaiac stools. Transfused to stable Hgb 9.5 today. Continue Protonix. EGD multiple AVMs and polp with rectal ulcers on colonoscope. (3) Non-ST elevation MS (NSTEMI): Code(s): I21.4 - Non-ST elevation (NSTEMI) myocardial infarction Status: Acute Assessment and Plan: Troponin elevated at 1.49 and up to 4.0. Unclear if he is having ischemic symptoms but more likely related to HoTN and profound anemia. LHC noted above so patient with known CAD and CT scan here showing PAD. . ECHO EF 40-45% with infer wall hypokinesis. Restarted beta jakub but no anteplatelet yet with GI bleed. Cardiology seeing. (4) Colitis: Code(s): K52.9 - Noninfective gastroenteritis and colitis, unspecified Status: Acute Assessment and Plan: CT scan showing moderately distended rectosigmoid colon with perirectal inflammation, possibly stercoral colitis. No fevers and WBC normal. He had minor abd discomfort on exam. Flagyl and biopsied ulcers on colon today (5) CHARLIE (acute kidney injury): Code(s): N17.9 - Acute kidney failure, unspecified Status: Acute Assessment and Plan: Baseline Cr is normal. Probably ATN from the HoTN and profound anemia. Contineu to monitor. creatinine back to 1.2 today (6) Alcoholism: Code(s): F10.20 - Alcohol dependence, uncomplicated Status: Acute Assessment and Plan: Unclear if he drinks and how much. Will start Thiamine and Folate. CIWA protocol and have Ativan available as needed. PT/OT now (7) Iron deficiency anemia: Code(s): D50.9 - Iron deficiency anemia, unspecified Status: Chronic Assessment and Plan: Iron deficiency noted by labs last year. Patient currently on oral iron which is probably contributing to his dark stools. IV Fe while here (8) Sickle cell trait: Code(s): D57.3 - Sickle-cell trait Status: Acute Assessment and Plan: Patient with SC trait which could contribute to his low Hgb. 2010 Hgb Electropheresis showing S 29.6% and A at 66.7% (9) Renal mass: Code(s): N28.89 - Other specified disorders of kidney and ureter Status: Acute Assessment and Plan: This has been noted for many years and being followed by urology. Patient should plan to follow up at next scheduled appointment. (10) Nicotine dependence: Code(s): F17.200 - Nicotine dependence, unspecified, uncomplicated Status: Chronic Assessment and Plan: Educated about the benefits of smoking cessation. He has nicotine patches in his bag - he was educated also not to smoke with the patches. (11) Essential (primary) hypertension: Code(s): I10 - Essential (primary) hypertension Status: Chronic Assessment and Plan: As above. Restarted metoprolol today (12) DVT prophylaxis: Code(s): Z29.9 - Encounter for prophylactic measures, unspecified Status: Acute Assessment and Plan: SCDs Subjective Date/time seen: 03/02/20 13:32 Interval history: Date of visit 03/02 79-year-old black male admitted with severe anemia hypotension and elevated troponin. No chest pain or shortness breath and feels better after 3 units of packed cells. Iron studies with TIBC at upper limit of
[2020-03-02] MEDS: METOPROLOL SUCCINATE EXT REL 25 MG TABCR PO (14:58)
--- NOTE | 2020-03-02 17:33 | PM.PNCARD ---
Progress Note: A&P Assessment and Plan (1) Non-ST elevation FL (NSTEMI): Code(s): I21.4 - Non-ST elevation (NSTEMI) myocardial infarction Status: Acute Assessment and Plan: 79-year-old male known CAD, PAD, diastolic dysfunction, hypertension, anemia, history of GI bleed. Admitted with altered mental status, GI bleed, and found to be severely anemic. His troponins elevated to 4. 0 7, and EKG showed ST-T abnormality suggestive of ischemia. He does not have any active ischemic symptoms at present. Continue supportive care for now. Telemetry reveals normal sinus rhythm. He is 7 beat run of nonsustained V-tach this afternoon. Check magnesium level in the morning. Echo:Left ventricular chamber dimension is normal. Left ventricular systolic function is mildly reduced, estimated at 40-45%. The posterior wall as well as the base of the inferior wall is hypodynamic. There is mild to moderate mitral valve regurgitation. Compared with 2019, segmental LV wall motion abnormalities are seen as noted Continue beta-jakub. Ideally he would be on aspirin 81 mg or clopidogrel 75 mg daily however given EGD and colonoscopy results risk outweigh benefits. Due to mild LV dysfunction may benefit from VANCE-inhibitor. Will need closely monitor his renal function if VANCE-inhibitor is added. BMP in the morning. (2) Acute upper GI bleed: Code(s): K92.2 - Gastrointestinal hemorrhage, unspecified Status: Acute Assessment and Plan: Management as per primary team and Gastroenterology Findings today and endoscopy: EGD--duodenal angioectasia, likely bleed slowing. He likely has additional AVMs distally in the small bowel (unable to reach by endoscope therapy). Recommendations: Iron replacement, chronic iron replacement, monitoring hemoglobin frequently as an outpatient. Colonoscopy: Ascending colon polyps. Rectal ulcers likely account for his more acute anemia (rule out stercal ulcer from impaction) Recommendations: Laxatives as needed. Repeat colonoscopy in 2 months to document healing if benign. Iron replacement. (3) Anemia: Code(s): D64.9 - Anemia, unspecified Status: Acute Assessment and Plan: As above Additional Plan Given his nonsustained VT will monitor in IMU overnight. Plan discussed with Dr. Vishal Buck 03/02/2020 Time Spent With Patient Time with patient: less than 15 minutes Subjective Date/time seen: 03/02/20 17:33 Interval history: Follow-up for: severe anemia and elevated troponin. Date of service: 03/02/2020 Subjective: Denied chest discomfort or shortness of breath. Lightheaded on occasion when lays backward. Review of Systems Constitutional: Constitutional: Reports fatigue Eyes: Eyes: Denies change in vision and Denies eye pain ENT: Reports Normal hearing present, Denies lip swelling, Denies epistaxis and Denies sore throat Cardiovascular: Cardiovascular: Reports chest pain (On occasion but will not be more specific), Denies irregular heart rhythm, Denies lightheadedness and Denies dyspnea Respiratory: Respiratory: Denies cough, Denies dyspnea and Denies wheezing Gastrointestinal: Gastrointestinal: Denies abdominal pain, Denies melena, Denies nausea and Denies vomiting Genitourinary: Genitourinary: Denies hematuria Musculoskeletal: Musculoskeletal: Denies myalgias, Denies muscle cramps and Denies muscle weakness Integumentary/Breasts: Skin/Breast: Denies pruritus and Denies rash Neurologic: Reports Normal hearing present Psychiatric: Psychiatric: Denies anxiety Endocrine: Endocrine: Reports fatigue, Denies polydipsia and Denies polyuria Hematologic/Lymphatic: Hematologic/Lymphatic: Denies easy bleeding and Denies easy bruising Allergic/Immunologic: Allergic/Immunologic: Denies lip swelling and Denies wheezing Exam Narrative: Exam Narrative: Ill-appearing, elderly male resting comfortably in bed.
[2020-03-02] MEDS: FERROUS SULFATE 324 MG TABLET PO (18:06)
[2020-03-02] MEDS: COLCHICINE 0.6 MG TABLET PO (18:06)
[2020-03-02] MEDS: POTASSIUM CHLORIDE 20 MEQ PACKET (FOR LIQUID) 40 MEQ PO (18:59)
[2020-03-02] MEDS: MAGNESIUM SULF 2 GM/WATER 50ML 2 GM/50 ML BAG IVPB (19:00)
[2020-03-03] VITALS (11 sets, daily range): BP systolic 119–150; BP diastolic 60–80; PULSE 72–92; RESP 18–24; TEMP 36.1–37.2; O2SAT 92–99
[2020-03-03] MEDS: metroNIDAZOLE 250MG/ISO 50 ML 250 MG/50 ML BAG 50 MG IVPB ×4 (00:03→17:09)
[2020-03-03 04:28] LABS: Basophils Percent Auto 0.2 % (0.2-1.2); Eosinophils Absolute Auto 0.2 K/mm3 (0-0.3); Eosinophils Percent Auto 2.6 % (0-4.4); Hemoglobin 8.6 g/dL (14.0-18.0); Immature Granulocyte Absolute 0.07 K/mm3 (0.00-0.031); Immature Granulocyte Percent A 0.8 % (0-0.5); Lymphocytes Absolute Auto 0.74 K/mm3 (0.9-3.2); Lymphocytes Percent Auto 8.8 % (18.3-44.2); Mean Corpuscular HGB Conc 30.7 g/dl (32-36); Mean Corpuscular Hemoglobin 26.1 pg (26-34); Mean Corpuscular Volume 84.8 fl (80-100); Mean Platelet Volume 10.7 fl (7.4-10.4); Monocytes Absolute Auto 0.8 K/mm3 (0.1-0.6); Monocytes Percent Auto 9.1 % (2.6-8.5); Neutrophils Absolute Auto 6.6 K/mm3 (1.3-6.7); Neutrophils Percent Auto 78.5 % (45.5-73.1); Nucleated Red Blood Cells Perc 0.2 % (0.0-0.2); Platelet Count Result 209 k/mm3 (150-375); Red Cell Distribution Width 19.1 % (11.5-14.5); White Blood Count 8.4 K/mm3 (4.5-10.0)
[2020-03-03 04:44] LABS: Blood Urea Nitrogen 12 mg/dL (9-20); Calcium 8.2 mg/dL (8.4-10.2); Carbon Dioxide 24 mmol/L (22-30); Chloride 105 mmol/L (98-107); Estimated CRCL calculation 59 ml/min; Estimated Glomerular Filt Rate > 60; Glucose 97 mg/dL (75-110); Magnesium 1.9 mg/dL (1.6-2.3); Potassium 4.2 mmol/L (3.4-5.0); Sodium 134 mmol/L (137-145)
--- NOTE | 2020-03-03 08:22 | WPDGIPROGNO ---
Progress Note: A&P Additional Plan Patient alert and comfortable this morning. Offers no complaints. Denies any obvious bleeding. physical exam vital signs are stable. HEENT exam is anicteric. Lungs are clear. Heart without murmur. Abdomen is soft and nontender. Labs reveal hemoglobin 8.6, hematocrit 28, MCV 84. Impression 1. Gastric and duodenal AVMs. The AVMs that were visualized were cauterized. I suspect he may have additional AVMs distal in the small bowel. These likely will continue to bleed slowly. Chronic iron replacement suggested. Monitor hemoglobin is an outpatient. He may require intermittent transfusions. 2. Rectal ulcerations. Very large ulceration identified in the rectum. Biopsies taken histology pending. Grossly suspicious for ischemia and/or stercoral ulceration. Plan to continue stool softeners and laxatives as needed. 3. Iron deficiency anemia. Chronic iron replacement suggested. Likely related to findings at endoscopy. Given findings of significant ulceration in AVMs. I would of avoid anticoagulation if at all possible on this patient. Subjective Date/time seen: 03/03/20 08:22 Objective Data Vital Signs Vital Signs: Vital Signs - 24 hr 03/02/20 09:11 03/02/20 10:00 03/02/20 10:40 Temperature 96.3 F L Pulse Rate 79 80 87 Pulse Rate [Monitor] Respiratory Rate 16 21 H Blood Pressure 148/71 H 120/85 Pulse Oximetry 93 96 03/02/20 10:50 03/02/20 10:59 03/02/20 12:00 Temperature 96.3 F L Pulse Rate 69 68 77 Pulse Rate [Monitor] Respiratory Rate 19 19 12 Blood Pressure 139/75 143/82 H 150/73 H Pulse Oximetry 95 97 92 03/02/20 14:00 03/02/20 14:58 03/02/20 16:00 Temperature 96.2 F L Pulse Rate 86 93 88 Pulse Rate [Monitor] Respiratory Rate 12 Blood Pressure 121/73 Pulse Oximetry 95 03/02/20 18:00 03/02/20 20:00 03/02/20 21:28 Temperature 97.8 F Pulse Rate 80 86 82 Pulse Rate [Monitor] 86 Respiratory Rate 18 Blood Pressure 130/67 Pulse Oximetry 97 03/02/20 23:36 03/02/20 23:42 03/03/20 02:00 Temperature 98.0 F Pulse Rate 82 86 80 Pulse Rate [Monitor] 82 Respiratory Rate 18 18 Blood Pressure 130/67 139/69 Pulse Oximetry 97 99 03/03/20 03:48 03/03/20 04:00 03/03/20 06:00 Temperature 97.9 F Pulse Rate 80 77 78 Pulse Rate [Monitor] 80 Respiratory Rate 18 20 Blood Pressure 139/69 130/71 Pulse Oximetry 99 98 Intake/Output Intake/Output: Intake & Output 02/29/20 03/01/20 03/02/20 03/03/20 23:59 23:59 23:59 23:59 Intake Total 203 2149 880 400 Output Total 50 650 300 Balance 153 2149 230 100 Meds/Results Medications: Active Medications Generic Name Dose Route Start Last Admin Trade Name Freq PRN Reason Stop Dose Admin Hydrocodone Bitart/Acetaminophen 1 tab 03/01/20 16:09 03/02/20 13:16 [place] 5-325 Mg PO 1 tab Q8H PRN Administration Pain Rated 4-6 Allopurinol 100 mg 03/01/20 08:00 03/02/20 18:06 Zyloprim PO 100 mg BIDWM MAULIK Administration Colchicine 0.6 mg 03/02/20 17:00 03/02/20 18:06 Colchicine Po PO 0.6 mg BID MAULIK Administration Ergocalciferol 50,000 unit 03/06/20 09:00 Drisdol PO Feldman@0900 MAULIK Ferrous Sulfate 324 mg 03/02/20 17:00 03/02/20 18:06 Ferrous Sulfate PO 324 mg BIDWM MAULIK Administration Folic Acid 1 mg 03/01/20 09:00 03/02/20 13:12 Folic Acid Inj IV PUSH 1 mg QAM MAULIK Administration Metronidazole 250 mg in 50 mls @ 50 mls/hr 03/01/20 00:00 03/03/20 05:35 Flagyl 250 Mg/Iso Soln 50 Ml IVPB 50 mls/hr Q6HR MAULIK Administration Lorazepam 1 mg 02/29/20 21:09 Ativan Inj IV PUSH Q6H PRN for CIWA>8 Metoprolol Succinate 25 mg 03/02/20 13:30 03/02/20 14:58 Toprol Xl PO 25 mg QAM MAULIK Administration Ondansetron HCl 4 mg 02/29/20 15:04 Zofran Inj IV PUSH Q4H PRN Nausea Pantoprazole Sodium 40 mg 02/29/20 21:15 03/02/20 20:16 Protonix Iv IV
--- NOTE | 2020-03-03 09:00 | ECG_ITS ---
Measurements Intervals [place] Rate: 80 P: 42 WV: 156 QRS: 87 QRSD: 140 T: 19 QT: 423 QTc: 491 Interpretive Statements SINUS RHYTHM POSSIBLE LEFT ATRIAL ENLARGEMENT RIGHT BUNDLE BRANCH BLOCK ABNORMAL ECG Electronically Signed On 03-03-2020 12:07:37 CDT by Kota Cheney D.O.
[2020-03-03] MEDS: COLCHICINE 0.6 MG TABLET PO ×2 (09:52→16:01)
[2020-03-03] MEDS: allopurinoL 100 MG TABLET PO ×2 (09:52→16:01)
[2020-03-03] MEDS: FERROUS SULFATE 324 MG TABLET PO ×2 (09:52→16:01)
[2020-03-03] MEDS: THIAMINE HCL 200 MG/2 ML VIAL 100 MG IV PUSH (09:53)
[2020-03-03] MEDS: PANTOPRAZOLE SODIUM IV 40 MG VIAL IV PUSH ×2 (09:54→20:10)
[2020-03-03] MEDS: FOLIC ACID 1 MG/0.2 ML INJ IV PUSH (09:59)
[2020-03-03] MEDS: METOPROLOL SUCCINATE EXT REL 25 MG TABCR PO (11:07)
--- NOTE | 2020-03-03 12:15 | PM.PNCARD ---
Progress Note: A&P Assessment and Plan (1) Non-ST elevation [place] (NSTEMI): Code(s): I21.4 - Non-ST elevation (NSTEMI) myocardial infarction Status: Acute Assessment and Plan: Continue beta-jakub. Ideally he would be on aspirin 81 mg or clopidogrel 75 mg daily however given EGD and colonoscopy results risk outweigh benefits. Due to mild LV dysfunction may benefit from VANCE-inhibitor. Add lisinopril 2.5 mg daily. Monitor his renal function closely. No further nonsustained VT after potassium and magnesium were corrected. Goal for potassium 4.0 and magnesium 2.0 EKG this morning personally reviewed at 80 beats per minute. Right bundle branch block. Ischemic changes noted on admission have resolved. (2) Acute upper GI bleed: Code(s): K92.2 - Gastrointestinal hemorrhage, unspecified Status: Acute Assessment and Plan: Management as per primary team and Gastroenterology Findings 03/02/2020: EGD--duodenal angioectasia, likely bleed slowing. He likely has additional AVMs distally in the small bowel (unable to reach by endoscope therapy). Recommendations: Iron replacement, chronic iron replacement, monitoring hemoglobin frequently as an outpatient. Colonoscopy: Ascending colon polyps. Rectal ulcers likely account for his more acute anemia (rule out stercal ulcer from impaction) Recommendations: Laxatives as needed. Repeat colonoscopy in 2 months to document healing if benign. Iron replacement. (3) Anemia: Code(s): D64.9 - Anemia, unspecified Status: Acute Assessment and Plan: As above Additional Plan OK to transfer to medicine. OK telemetry. Will arrange follow-up in the office with Plan discussed with Dr Sorensen [id number] 03/03/2020. Subjective Date/time seen: 03/03/20 12:15 Interval history: Follow-up for: severe anemia and elevated troponin. Date of service: 03/03/2020 Subjective: Laying flat in bed. States hurts all over. Denied specifically having chest discomfort. States he having difficulty with breathing although he is laying in bed flat, not tachypneic, not distressed and oxygen saturation is 94% Review of Systems Constitutional: Constitutional: Reports body ache(s) and Reports fatigue Eyes: Eyes: Denies change in vision and Denies eye pain ENT: Reports Normal hearing present, Denies lip swelling, Denies epistaxis and Denies sore throat Cardiovascular: Cardiovascular: Denies chest pain, Denies irregular heart rhythm, Denies lightheadedness and Denies dyspnea Respiratory: Respiratory: Denies cough, Reports dyspnea (See subjective) and Denies wheezing Gastrointestinal: Gastrointestinal: Denies abdominal pain, Denies melena, Denies nausea and Denies vomiting Genitourinary: Genitourinary: Denies hematuria Musculoskeletal: Musculoskeletal: Denies myalgias, Denies muscle cramps and Denies muscle weakness Integumentary/Breasts: Skin/Breast: Denies pruritus and Denies rash Neurologic: Reports Normal hearing present and Reports confusion Psychiatric: Psychiatric: Denies anxiety and Reports confusion Endocrine: Endocrine: Reports fatigue, Denies polydipsia and Denies polyuria Hematologic/Lymphatic: Hematologic/Lymphatic: Denies easy bleeding and Denies easy bruising Allergic/Immunologic: Allergic/Immunologic: Denies lip swelling and Denies wheezing Exam Narrative: Exam Narrative: Ill-appearing, elderly male laying flat in bed. Const: General: no acute distress, alert, awake and confusion Orientation/consciousness: confusion HENMT: Head: normocephalic and atraumatic Ears: hearing grossly normal bilaterally and external ears normal General nose exam: Normal external nose present and no epistaxis Face and sinus: normal facial exam and no ecchymosis Mouth: Yes moist mucous membranes Teeth and gingiva: dentition normal Eyes: General: appearance normal, both ey
--- NOTE | 2020-03-03 13:40 | PCDIET ---
Nutrition Follow-Up Complete: Nutrition Diagnosis: Suboptimal oral intake related to GI bleed as evidenced by NPO/clear liquid diet orders. Nutrition Goal: Patient to consume 75% of meals or greater. Goal in progress. Patient consuming 50-75% of meals on full liquid diet. Patient sleeping soundly at time of visit and did not awaken to verbal cues. Recommend adding Ensure Compact (220kcal, 9g protein) BID. Last recorded weight is 78 kg which is stable. Bowel Motility: Liquid BM documented today. Miralax held. Labs Reviewed: Hgb (8.6), Hct (28.0), Na (134) Meds Noted: Albuterol, Ferrous Sulfate, Colchicine, Folic Acid, Drisdol, Ativan, Flagyl, Protonix, Thiamine Additional Notes: No documented skin breakdown. Will continue to monitor with same goal. Nutrition Monitoring and Evaluation: Follow up every 5 days.
--- NOTE | 2020-03-03 14:31 | WPDANESPN ---
Anes - Prog Note Post-Op Date/Time: 03/03/20 14:31 Cardiovascular status: normal Respiratory status: normal Airway patency: baseline Mental status: baseline Post-Op hydration status: normal Vital Signs: Last Vital Signs Temp 36.9 C 03/03/20 12:00 Pulse 82 03/03/20 14:00 Resp 18 03/03/20 12:00 BP 123/80 03/03/20 12:00 Pulse Ox 94 03/03/20 12:00 I/O: Intake & Output 03/02/20 03/03/20 03/03/20 23:59 07:59 15:59 Intake Total 580 450 470 Output Total 500 300 200 Balance 80 150 270 Laboratory Tests 03/03/20 04:17 03/03/20 04:17 03/03/20 03/03/20 04:17 04:17 WBC 8.4 RBC 3.30 L Hgb 8.6 L Hct 28.0 L MCV 84.8 MCH 26.1 MCHC 30.7 L RDW 19.1 H Plt Count 209 MPV 10.7 H Immature Gran % (Auto) 0.8 H Neut % (Auto) 78.5 H Lymph % (Auto) 8.8 L [place] % (Auto) 9.1 H Eos % (Auto) 2.6 Baso % (Auto) 0.2 Lymph # (Auto) 0.74 L [place] # (Auto) 0.8 H Eos # (Auto) 0.2 Baso # (Auto) 0.0 Abs Immat Gran (auto) 0.07 H Absolute Neuts (auto) 6.6 Absolute Nucleated RBC 0.0 Nucleated RBC % 0.2 Sodium 134 L Potassium 4.2 Chloride 105 Carbon Dioxide 24 BUN 12 D Creatinine 0.90 Estim Creat Clear Calc 59 Estimated GFR > 60 Glucose 97 Calcium 8.2 L Magnesium 1.9 Troponin I 1.750 H* Post-procedural complaints: none Patient Feedback: Patient satisfied with anesthetic care.
--- NOTE | 2020-03-03 16:32 | PM.IMPN ---
Progress Note: A&P Assessment and Plan (1) Shock: Code(s): R57.9 - Shock, unspecified Status: Acute Assessment and Plan: BP 80/40 in the field. Treated with IV fluids and transfusion and BP stable now. metoprolol restarted 03/02 .. Cause of shock unknown, doubt acute hemmorrhagic , could be part cardio induced (2) Acute upper GI bleed: Code(s): K92.2 - Gastrointestinal hemorrhage, unspecified Status: Acute Assessment and Plan: Patient with dark stools but is on iron. He has had multiple admissions for anemia from presumed GI blood loss. . Also unclear if he takes OTC NSAIDs. . Transfused to stable Hgb 8.6 today. Continue Protonix. EGD multiple AVMs and polp with rectal ulcers on colonoscope. (3) Non-ST elevation [place] (NSTEMI): Code(s): I21.4 - Non-ST elevation (NSTEMI) myocardial infarction Status: Acute Assessment and Plan: Troponin elevated at 1.49 and up to 4.0. Unclear if he is having ischemic symptoms but more likely related to HoTN and profound anemia. C noted above so patient with known CAD and CT scan here showing PAD. . ECHO EF 40-45% with infer wall hypokinesis. Restarted beta jakub but no anteplatelet yet with GI bleed. Cardiology added low dose tony today . (4) Colitis: Code(s): K52.9 - Noninfective gastroenteritis and colitis, unspecified Status: Acute Assessment and Plan: CT scan showing moderately distended rectosigmoid colon with perirectal inflammation, possibly stercoral colitis. No fevers and WBC normal. He had minor abd discomfort on exam. Flagyl and biopsied ulcers on colon 03/02 (5) CHARLIE (acute kidney injury): Code(s): N17.9 - Acute kidney failure, unspecified Status: Acute Assessment and Plan: Baseline Cr is normal. Probably ATN from the HoTN and profound anemia. Contineu to monitor. creatinine back to 0.9 today (6) Alcoholism: Code(s): F10.20 - Alcohol dependence, uncomplicated Status: Acute Assessment and Plan: Unclear if he drinks and how much. Thiamine and Folate. WA protocol and have Ativan available as needed. PT/OT now (7) Iron deficiency anemia: Code(s): D50.9 - Iron deficiency anemia, unspecified Status: Chronic Assessment and Plan: Iron deficiency noted by labs last year. Patient currently on oral iron which is probably contributing to his dark stools. IV Fe while here, has received 900 mg IV total (8) Sickle cell trait: Code(s): D57.3 - Sickle-cell trait Status: Acute Assessment and Plan: Patient with SC trait which could contribute to his low Hgb. 2010 Hgb Electropheresis showing S 29.6% and A at 66.7% (9) Renal mass: Code(s): N28.89 - Other specified disorders of kidney and ureter Status: Acute Assessment and Plan: This has been noted for many years and being followed by urology. Patient should plan to follow up at next scheduled appointment. (10) Nicotine dependence: Code(s): F17.200 - Nicotine dependence, unspecified, uncomplicated Status: Chronic Assessment and Plan: Educated about the benefits of smoking cessation. He has nicotine patches in his bag - he was educated also not to smoke with the patches. (11) Essential (primary) hypertension: Code(s): I10 - Essential (primary) hypertension Status: Chronic Assessment and Plan: As above. Restarted metoprolol 03/02 and tony added 03/03 (12) DVT prophylaxis: Code(s): Z29.9 - Encounter for prophylactic measures, unspecified Status: Acute Assessment and Plan: SCDs Subjective Date/time seen: 03/03/20 16:33 Interval history: Date of visit 03/03 79-year-old black male admitted with severe anemia hypotension and elevated troponin. No chest pain or shortness breath and felt better after 3 units of packed cells. Iron studies with TIBC at upper limit
[2020-03-03] MEDS: lisinopriL 2.5 MG TABLET PO (16:50)
[2020-03-04] VITALS (7 sets, daily range): BP systolic 120–157; BP diastolic 62–80; PULSE 73–90; RESP 16–20; TEMP 36.1–36.3; O2SAT 91–100
[2020-03-04] MEDS: metroNIDAZOLE 250MG/ISO 50 ML 250 MG/50 ML BAG 50 MG IVPB ×4 (00:29→18:54)
[2020-03-04 04:55] LABS: Basophils Percent Auto 0.2 % (0.2-1.2); Eosinophils Absolute Auto 0.2 K/mm3 (0-0.3); Eosinophils Percent Auto 2.6 % (0-4.4); Hematocrit 28.4 % (42.0-52.0); Hemoglobin 8.6 g/dL (14.0-18.0); Immature Granulocyte Absolute 0.06 K/mm3 (0.00-0.031); Immature Granulocyte Percent A 0.7 % (0-0.5); Lymphocytes Absolute Auto 0.97 K/mm3 (0.9-3.2); Mean Corpuscular HGB Conc 30.3 g/dl (32-36); Mean Corpuscular Hemoglobin 26.3 pg (26-34); Mean Corpuscular Volume 86.9 fl (80-100); Mean Platelet Volume 11.3 fl (7.4-10.4); Monocytes Absolute Auto 0.8 K/mm3 (0.1-0.6); Monocytes Percent Auto 9.7 % (2.6-8.5); Neutrophils Absolute Auto 6.1 K/mm3 (1.3-6.7); Neutrophils Percent Auto 74.8 % (45.5-73.1); Platelet Count Result 230 k/mm3 (150-375); Red Blood Count 3.27 M/mm3 (4.6-6.20); Red Cell Distribution Width 19.5 % (11.5-14.5); White Blood Count 8.1 K/mm3 (4.5-10.0)
[2020-03-04 05:03] LABS: Blood Urea Nitrogen 10 mg/dL (9-20); Calcium 8.3 mg/dL (8.4-10.2); Carbon Dioxide 24 mmol/L (22-30); Chloride 104 mmol/L (98-107); Estimated CRCL calculation 49 ml/min; Estimated Glomerular Filt Rate > 60; Glucose 103 mg/dL (75-110); Potassium 4.3 mmol/L (3.4-5.0); Sodium 133 mmol/L (137-145)
[2020-03-04 08:08] LABS: Glucose Point of Care 100 (65-105)
--- NOTE | 2020-03-04 08:16 | WPDGIPROGNO ---
Progress Note: A&P Additional Plan Patient unchanged period remains comfortable. No active bleeding identified. Physical exam reveals patient to be stable. Vital signs stable. Lungs are clear. Abdomen is soft and nontender. No masses identified. Labs reveal hemoglobin 8.6, hematocrit 28.4, MCV 86. Impression 1. Iron deficiency anemia. Patient may require chronic iron replacement. Continued blood loss from AVMs could easily occur. 2. Gastric and duodenal AVMs. Plan is for chronic iron replacement. Monitor hemoglobin after discharge. 3. Rectal ulceration. Histology is benign. Ischemia and or ulcer secondary to impaction suspected.(stercal ulcer), Because of the large size of this ulcer I would advise a follow-up colonoscopy in 2 months. Continue stool softeners in the antrum. Plan to advance diet. Discharge when okay with primary care service. Follow-up colonoscopy is outlined in several months. Subjective Date/time seen: 03/04/20 08:16 Objective Data Vital Signs Vital Signs: Vital Signs - 24 hr 03/03/20 10:00 03/03/20 11:07 03/03/20 12:00 Temperature 98.5 F Pulse Rate 84 74 72 Pulse Rate [Monitor] 80 Respiratory Rate 18 Blood Pressure 123/80 Pulse Oximetry 94 03/03/20 14:00 03/03/20 16:00 03/03/20 20:00 Temperature 99 F 98.5 F Pulse Rate 82 87 85 Pulse Rate [Monitor] Respiratory Rate 24 H 18 Blood Pressure 150/74 H 119/60 Pulse Oximetry 99 92 Intake/Output Intake/Output: Intake & Output 03/01/20 03/02/20 03/03/20 03/04/20 23:59 23:59 23:59 23:59 Intake Total 2149 880 2825 50 Output Total 650 800 350 Balance 2149 230 2025 -300 Meds/Results Medications: Active Medications Generic Name Dose Route Start Last Admin Trade Name Freq PRN Reason Stop Dose Admin Hydrocodone Bitart/Acetaminophen 1 tab 03/01/20 16:09 03/03/20 15:53 [place] 5-325 Mg PO 1 tab Q8H PRN Administration Pain Rated 4-6 Albuterol 5 mg 03/03/20 08:59 Albuterol Sulf Neb 2.5mg/0.5ml INHALATION Q6HRT PRN Shortness Of Breath Allopurinol 100 mg 03/01/20 08:00 03/03/20 16:01 Zyloprim PO 100 mg BIDWM MAULIK Administration Colchicine 0.6 mg 03/02/20 17:00 03/03/20 16:01 Colchicine Po PO 0.6 mg BID MAULIK Administration Ergocalciferol 50,000 unit 03/06/20 09:00 Drisdol PO Feldman@0900 MAULIK Ferrous Sulfate 324 mg 03/02/20 17:00 03/03/20 16:01 Ferrous Sulfate PO 324 mg BIDWM MAULIK Administration Folic Acid 1 mg 03/01/20 09:00 03/03/20 09:59 Folic Acid Inj IV PUSH 1 mg QAM MAULIK Administration Metronidazole 250 mg in 50 mls @ 50 mls/hr 03/01/20 00:00 03/04/20 05:49 Flagyl 250 Mg/Iso Soln 50 Ml IVPB 50 mls/hr Q6HR MAULIK Administration Lisinopril 2.5 mg 03/03/20 16:05 03/03/20 16:50 Prinivil PO 2.5 mg QAM MAULIK Administration Lorazepam 1 mg 02/29/20 21:09 Ativan Inj IV PUSH Q6H PRN for CIWA>8 Metoprolol Succinate 25 mg 03/02/20 13:30 03/03/20 11:07 Toprol Xl PO 25 mg QAM MAULIK Administration Ondansetron HCl 4 mg 02/29/20 15:04 Zofran Inj IV PUSH Q4H PRN Nausea Pantoprazole Sodium 40 mg 02/29/20 21:15 03/03/20 20:10 Protonix Iv IV PUSH 40 mg Q12HR AMULIK Administration Polyethylene Glycol 17 gm 03/03/20 09:00 03/03/20 09:54 Miralax PO Not Given QAM MAULIK Simethicone 0.6 ml 03/02/20 10:24 03/02/20 10:25 Mylicon Infants Drops PO 0.6 ml ONCE PRN Administration Gas Discomfort Thiamine HCl 100 mg 03/01/20 09:00 03/03/20 09:53 Thiamine Hcl Inj IV PUSH 100 mg QAM MAULIK Administration Radiology Results: ITS Impressions Chest X-Ray 02/29/20 11:17 IMPRESSION: 1. Chronic interstitial lung disease. Head CT 02/29/20 11:19 IMPRESSION: 1. 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 2. Chronic age related findings. Abdomen/Pelvis CT 02/29/20 13:38 IMPRESSION: 1. Moderat
[2020-03-04] MEDS: PANTOPRAZOLE SODIUM IV 40 MG VIAL IV PUSH ×2 (09:36→20:09)
[2020-03-04] MEDS: THIAMINE HCL 200 MG/2 ML VIAL 100 MG IV PUSH (09:36)
[2020-03-04] MEDS: polyethylene glycoL 3350 17 GM POWD.PACK PO (09:36)
[2020-03-04] MEDS: allopurinoL 100 MG TABLET PO ×2 (09:36→17:16)
[2020-03-04] MEDS: METOPROLOL SUCCINATE EXT REL 25 MG TABCR PO (09:36)
[2020-03-04] MEDS: FOLIC ACID 1 MG/0.2 ML INJ IV PUSH (09:36)
[2020-03-04] MEDS: lisinopriL 2.5 MG TABLET PO (09:37)
[2020-03-04] MEDS: COLCHICINE 0.6 MG TABLET PO ×2 (09:37→17:16)
[2020-03-04] MEDS: FERROUS SULFATE 324 MG TABLET PO ×2 (09:37→17:16)
[2020-03-04] MEDS: ALBUTEROL SULFATE NEB 2.5 MG/0.5 ML INH 5 MG INHALATION (10:00)
--- NOTE | 2020-03-04 12:05 | PM.PNCARD ---
Progress Note: A&P Assessment and Plan (1) Non-ST elevation [place] (NSTEMI): Code(s): I21.4 - Non-ST elevation (NSTEMI) myocardial infarction Status: Acute Assessment and Plan: Continue beta-jakub. Ideally he would be on aspirin 81 mg or clopidogrel 75 mg daily however given EGD and colonoscopy results risk outweigh benefits. Due to mild LV dysfunction continue lisinopril 2.5 mg daily. Monitor his renal function closely. Monitor electrolytes. Goal for potassium 4.0 and magnesium 2.0 Conservative management at this time. (2) Acute upper GI bleed: Code(s): K92.2 - Gastrointestinal hemorrhage, unspecified Status: Acute Assessment and Plan: Management as per primary team and Gastroenterology Findings 03/02/2020: EGD--duodenal angioectasia, likely bleed slowing. He likely has additional AVMs distally in the small bowel (unable to reach by endoscope therapy). Recommendations: Iron replacement, chronic iron replacement, monitoring hemoglobin frequently as an outpatient. Colonoscopy: Ascending colon polyps. Rectal ulcers likely account for his more acute anemia (rule out stercal ulcer from impaction) Recommendations: Laxatives as needed. Repeat colonoscopy in 2 months to document healing if benign. Iron replacement. (3) Anemia: Code(s): D64.9 - Anemia, unspecified Status: Acute Assessment and Plan: As above Additional Plan Will see patient as needed. DC telemetry. Will arrange follow-up in the office with Plan discussed with Dr Sorensen [id number] 03/03/2020. Subjective Date/time seen: Date of service: 03/04/20 12:05 Interval history: Follow-up for: severe anemia and elevated troponin. Subjective: Complains of hip pain. Denies shortness of breath, chest pain. No other complaints period notes occasional lightheadedness when moving around. No palpitations. No new issues overnight. Able to lie flat in bed. Review of Systems Constitutional: Constitutional: Reports body ache(s) and Reports fatigue Eyes: Eyes: Denies change in vision and Denies eye pain ENT: Reports Normal hearing present, Denies lip swelling, Denies epistaxis and Denies sore throat Cardiovascular: Cardiovascular: Denies chest pain, Denies irregular heart rhythm, Denies lightheadedness and Reports dyspnea (See subjective) Respiratory: Respiratory: Denies cough, Reports dyspnea (See subjective) and Denies wheezing Gastrointestinal: Gastrointestinal: Denies abdominal pain, Denies melena, Denies nausea and Denies vomiting Genitourinary: Genitourinary: Denies hematuria Musculoskeletal: Musculoskeletal: Denies myalgias, Denies muscle cramps and Denies muscle weakness Integumentary/Breasts: Skin/Breast: Denies pruritus and Denies rash Neurologic: Reports Normal hearing present and Reports confusion Psychiatric: Psychiatric: Denies anxiety and Reports confusion Endocrine: Endocrine: Reports fatigue, Denies polydipsia and Denies polyuria Hematologic/Lymphatic: Hematologic/Lymphatic: Denies easy bleeding and Denies easy bruising Allergic/Immunologic: Allergic/Immunologic: Denies lip swelling and Denies wheezing Exam Narrative: Exam Narrative: elderly male laying flat in bed. Const: General: no acute distress, alert, awake and confusion Orientation/consciousness: confusion HENMT: Head: normocephalic and atraumatic Ears: hearing grossly normal bilaterally and external ears normal General nose exam: Normal external nose present and no epistaxis Face and sinus: normal facial exam and no ecchymosis Mouth: Yes moist mucous membranes Teeth and gingiva: dentition normal Eyes: General: appearance normal, both eyes and all related structures Conjunctivae: other ([place]) Sclera: sclerae normal Pupils: Equal, round and reactive pupils present EOM: EOMs intact bilaterally Neck: Neck: normal visual inspect
--- NOTE | 2020-03-04 17:40 | PM.IMPN ---
Progress Note: A&P Assessment and Plan (1) Shock: Code(s): R57.9 - Shock, unspecified Status: Acute Assessment and Plan: BP 80/40 in the field. Treated with IV fluids and transfusion and BP stable now. metoprolol restarted 03/02 .. Cause of shock unknown, doubt acute hemmorrhagic , could be part cardio induced (2) Acute upper GI bleed: Code(s): K92.2 - Gastrointestinal hemorrhage, unspecified Status: Acute Assessment and Plan: Patient with dark stools but is on iron. He has had multiple admissions for anemia from presumed GI blood loss. . Also unclear if he takes OTC NSAIDs. . Transfused to stable Hgb 8.6 today. Continue Protonix. EGD multiple AVMs and polp with rectal ulcers on colonoscope. (3) Non-ST elevation AR (NSTEMI): Code(s): I21.4 - Non-ST elevation (NSTEMI) myocardial infarction Status: Acute Assessment and Plan: Troponin elevated at 1.49 and up to 4.0. Unclear if he is having ischemic symptoms but more likely related to HoTN and profound anemia. C noted above so patient with known CAD and CT scan here showing PAD. . ECHO EF 40-45% with infer wall hypokinesis. Restarted beta jakub but no anteplatelet yet with GI bleed. Cardiology added low dose tony 03/03 . (4) Colitis: Code(s): K52.9 - Noninfective gastroenteritis and colitis, unspecified Status: Acute Assessment and Plan: CT scan showing moderately distended rectosigmoid colon with perirectal inflammation, possibly stercoral colitis. No fevers and WBC normal. He had minor abd discomfort on exam. Flagyl and biopsied ulcers on colon 03/02 (5) CHARLIE (acute kidney injury): Code(s): N17.9 - Acute kidney failure, unspecified Status: Acute Assessment and Plan: Baseline Cr is normal. Probably ATN from the HoTN and profound anemia. Contineu to monitor. creatinine back to 0.9 (6) Alcoholism: Code(s): F10.20 - Alcohol dependence, uncomplicated Status: Acute Assessment and Plan: Unclear if he drinks and how much. Thiamine and Folate. WA protocol and have Ativan available as needed. PT/OT now (7) Iron deficiency anemia: Code(s): D50.9 - Iron deficiency anemia, unspecified Status: Chronic Assessment and Plan: Iron deficiency noted by labs last year. Patient currently on oral iron which is probably contributing to his dark stools. IV Fe while here, has received 900 mg IV total (8) Sickle cell trait: Code(s): D57.3 - Sickle-cell trait Status: Acute Assessment and Plan: Patient with SC trait which could contribute to his low Hgb. 2010 Hgb Electropheresis showing S 29.6% and A at 66.7% (9) Renal mass: Code(s): N28.89 - Other specified disorders of kidney and ureter Status: Acute Assessment and Plan: This has been noted for many years and being followed by urology. Patient should plan to follow up at next scheduled appointment. (10) Nicotine dependence: Code(s): F17.200 - Nicotine dependence, unspecified, uncomplicated Status: Chronic Assessment and Plan: Educated about the benefits of smoking cessation. He has nicotine patches in his bag - he was educated also not to smoke with the patches. (11) Essential (primary) hypertension: Code(s): I10 - Essential (primary) hypertension Status: Chronic Assessment and Plan: As above. Restarted metoprolol 03/02 and tony added 03/03 bp good as above (12) DVT prophylaxis: Code(s): Z29.9 - Encounter for prophylactic measures, unspecified Status: Acute Assessment and Plan: SCDs Subjective Date/time seen: 03/04/20 17:40 Interval history: Date of visit 03/04 79-year-old black male admitted with severe anemia hypotension and elevated troponin. No chest pain or shortness breath and felt better after 3 units of packed cells. Iron studies with TIBC at
[2020-03-05] MEDS: metroNIDAZOLE 250MG/ISO 50 ML 250 MG/50 ML BAG 50 MG IVPB ×3 (00:28→11:30)
--- NOTE | 2020-03-05 06:59 | PC.NURSE ---
This patient, Rick Martinez, was transferred to [ [id number]] on 03/05/20 at 0659. Personal belongings sent with patient. Belongings list checked and signed with receiving [ ]. Report given to [Gaby GEORGE ]. Appropriate documentation sent with patient.
[2020-03-05 08:00] VITALS: BP 168/93; PULSE 100; RESP 18; TEMP 36.6; O2SAT 94
[2020-03-05] MEDS: allopurinoL 100 MG TABLET PO (09:59)
[2020-03-05] MEDS: METOPROLOL SUCCINATE EXT REL 25 MG TABCR PO (09:59)
[2020-03-05] MEDS: FERROUS SULFATE 324 MG TABLET PO (09:59)
[2020-03-05] MEDS: lisinopriL 2.5 MG TABLET PO (09:59)
[2020-03-05] MEDS: COLCHICINE 0.6 MG TABLET PO (09:59)
[2020-03-05] MEDS: PANTOPRAZOLE SODIUM IV 40 MG VIAL IV PUSH (10:01)
[2020-03-05] MEDS: THIAMINE HCL 200 MG/2 ML VIAL 100 MG IV PUSH (10:01)
[2020-03-05] MEDS: FOLIC ACID 1 MG/0.2 ML INJ IV PUSH (10:02)
[2020-03-05] MEDS: polyethylene glycoL 3350 17 GM POWD.PACK PO (10:02)
[2020-03-05 12:00] VITALS: BP 139/98; PULSE 89; RESP 22; TEMP 36.6; O2SAT 94
--- NOTE | 2020-03-09 08:27 | PM.DS ---
DS: Admitting Diagnosis Admitting Diagnosis Admitting Diagnosis: Gastrointestinal hemorrhage, unspecified DS: Discharge Diagnosis Discharge Diagnosis (1) Shock: Code(s): R57.9 - Shock, unspecified Status: Acute Assessment and Plan: BP 80/40 in the field. Treated with IV fluids and transfusion and BP stablelized. metoprolol restarted 03/02 .. Cause of shock unknown, doubt acute hemmorrhagic , could be part cardio induced (2) Acute upper GI bleed: Code(s): K92.2 - Gastrointestinal hemorrhage, unspecified Status: Acute Assessment and Plan: Patient with dark stools but is on iron. He has had multiple admissions for anemia from presumed GI blood loss. . Also unclear if he takes OTC NSAIDs. . Transfused to stable Hgb 8.6 at discharge. Continue Protonix. EGD multiple AVMs and polp with rectal ulcers on colonoscope. (3) Non-ST elevation HI (NSTEMI): Code(s): I21.4 - Non-ST elevation (NSTEMI) myocardial infarction Status: Acute Assessment and Plan: Troponin elevated at 1.49 and up to 4.0. Unclear if he had ischemic symptoms but more likely related to HoTN and profound anemia. LHC noted above so patient with known CAD and CT scan here showing PAD. . ECHO EF 40-45% with infer wall hypokinesis. Restarted beta jakub but no anteplatelet yet with GI bleed. Cardiology added low dose tony 03/03 . lisinipril 2.5 mg (4) Colitis: Code(s): K52.9 - Noninfective gastroenteritis and colitis, unspecified Status: Acute Assessment and Plan: CT scan showing moderately distended rectosigmoid colon with perirectal inflammation, possibly stercoral colitis. No fevers and WBC normal. He had minor abd discomfort on exam. Flagyl and biopsied ulcers on colon 03/02 Path nonspecific infllamation (5) CHARLIE (acute kidney injury): Code(s): N17.9 - Acute kidney failure, unspecified Status: Acute Assessment and Plan: Baseline Cr is normal. Probably ATN from the HoTN and profound anemia. Contineu to monitor. creatinine back to 1.1 at discharge (6) Alcoholism: Code(s): F10.20 - Alcohol dependence, uncomplicated Status: Acute Assessment and Plan: Unclear if he drinks and how much. Thiamine and Folate. give while here (7) Iron deficiency anemia: Code(s): D50.9 - Iron deficiency anemia, unspecified Status: Chronic Assessment and Plan: Iron deficiency noted by labs last year. Patient currently on oral iron which is probably contributing to his dark stools. IV Fe while here, has received 900 mg IV total (8) Sickle cell trait: Code(s): D57.3 - Sickle-cell trait Status: Acute Assessment and Plan: Patient with SC trait which could contribute to his low Hgb. 2010 Hgb Electropheresis showing S 29.6% and A at 66.7% (9) Renal mass: Code(s): N28.89 - Other specified disorders of kidney and ureter Status: Acute Assessment and Plan: This has been noted for many years and being followed by urology. Patient should plan to follow up at next scheduled appointment. (10) Nicotine dependence: Code(s): F17.200 - Nicotine dependence, unspecified, uncomplicated Status: Chronic Assessment and Plan: Educated about the benefits of smoking cessation. He has nicotine patches in his bag - he was educated also not to smoke with the patches. (11) Essential (primary) hypertension: Code(s): I10 - Essential (primary) hypertension Status: Chronic Assessment and Plan: As above. Restarted metoprolol 03/02 and tony added 03/03 bp good as above DS: Summary Hospital Course Hospital Course: 79-year-old hypertensive black male with history iron deficiency anemia admitted with a hemoglobin 5.9 and hypotension. Hydrated in transfuse to hemoglobin above 8 with no further evidence of GI blood loss. EGD revealed AV malformations and clonus
== END 2020-03-05 16:45 | disposition home health service (06) | DRG 393 ==
LOC: ANHED 15:15 → ANHIMU 19:19
PROVIDERS: Internal Medicine Gastroenterology; Nurse Practitioner Adult Health; Admitting Provider Internal Medicine; Emergency Provider General Practice; PCP Family Medicine; Visit Provider Internal Medicine
PROC: 0DJ08ZZ Inspection of Upper Intestinal Tract, Via Natural or Artificial Opening Endoscopic (ICD-10-PCS; CPT 43235; principal; 2020-03-02 10:00)
DX: K62.6 Ulcer of anus and rectum (principal); I21.4 Non-ST elevation (NSTEMI) myocardial infarction; N17.0 Acute kidney failure with tubular necrosis; K92.2 Gastrointestinal hemorrhage, unspecified; R57.9 Shock, unspecified; D64.9 Anemia, unspecified; F17.210 Nicotine dependence, cigarettes, uncomplicated; K52.9 Noninfective gastroenteritis and colitis, unspecified; F10.20 Alcohol dependence, uncomplicated; D57.3 Sickle-cell trait; I99.8 Other disorder of circulatory system; Q27.33 Arteriovenous malformation of digestive system vessel; D12.2 Benign neoplasm of ascending colon; N28.89 Other specified disorders of kidney and ureter
CPT/HCPCS: 36415; 36430; 51701; 70450; 71045; 74177; 80048; 80053; 81001; 82607; 82728; 82746; 83036; 83540; 83550; 83605; 83690; 83735; 84443; 84484; 85014; 85018; 85025; 85027; 85610; 85730; 86644; 86850; 86900; 86901; 86902; 86922; 88305; 93005; 93306; 94640; 96374; 97110; 97161; 97165; 97530; 99291; A9270; C9113; J1756; J2704; J3411; J3475; J7050; J7060; J7120; P9016; Q9967

== ENCOUNTER 2020-03-09 10:56 | Outpatient (NON) | payer MEDICARE, MEDICAID, SELFPAY ==
[2020-03-09 11:23] LABS: Blood Urea Nitrogen 13 mg/dL (9-20); Calcium 8.6 mg/dL (8.4-10.2); Carbon Dioxide 21 mmol/L (22-30); Chloride 112 mmol/L (98-107); Estimated Glomerular Filt Rate 59; Glucose 79 mg/dL (75-110); Magnesium 1.6 mg/dL (1.6-2.3); Sodium 142 mmol/L (137-145)
== END 2020-03-09 10:57 ==
PROVIDERS: PCP Family Medicine; Visit Provider Nurse Practitioner Adult Health
DX: E83.42 Hypomagnesemia (principal); E87.6 Hypokalemia; I21.4 Non-ST elevation (NSTEMI) myocardial infarction
CPT/HCPCS: 80048; 83735; 85025

== ENCOUNTER 2020-04-20 15:44 | Emergency (ER) | payer MEDICARE, MEDICAID, SELFPAY ==
--- NOTE | ~2020-04-20 | CT_ITS ---
EXAMINATION: CT brain wo con INDICATION: Decreased level of consciousness, lethargy, altered mental status COMPARISON: 02/29/2020 TECHNIQUE: Standard unenhanced head CT. The dose-length product (DLP) was 681.00 mGy-cm. The mA was a djusted according to patient size. Iterative reconstruction technique was employed. FINDINGS: There is no acute intraparenchymal hemorrhage. No evidence of mass lesion. No evidence of a cute infarction. There is moderate periventricular and subcortical hypodensity probably related to sm all vessel ischemic disease. There is moderate prominence of the sulci and ventricles related to cere bral atrophy. Intracranial calcified cerebral atherosclerosis is noted. There are no extra-axial michelle ections. There is no mass effect or midline shift. The orbits and soft tissues are unremarkable. The visualized sinuses and mastoid air cells are well aerated. IMPRESSION: 1. No acute intracranial abnormality. 2. Age related findings. Reviewed, dictated and finalized at location A.
--- NOTE | ~2020-04-20 | XR_ITS ---
EXAMINATION: XR chest 1V portable DATE: 04/20/2020 16:59 INDICATION: Lethargy. Near syncopal episode. TECHNIQUE: frontal view of the chest was obtained. COMPARISON: Chest radiograph dated 02/29/2020 FINDINGS: Opacities in the left mid to lower lung zone with obscuration of the heart border and lung base. Pers istent fine reticular opacities at the right lung base likely combination of atelectasis and chronic interstitial lung disease. No pneumothorax or left-sided pleural effusion. Cardiomegaly. IMPRESSION: 1. Increasing opacities in the left mid to lower lung zone which could represent small left pleural e ffusion, atelectasis, pneumonia or some combination thereof. 2. Atelectasis on chronic interstitial lung disease at the right lung base. 3. Cardiomegaly. Reviewed, dictated and finalized at location A. IMPRESSION: 1. Increasing opacities in the left mid to lower lung zone which could represen t small left pleural effusion, atelectasis, pneumonia or some combination there of. 2. Atelectasis on chronic interstitial lung disease at the right lung base. 3. Cardiomegaly.
[2020-04-20 15:44] VITALS: BP 105/64; PULSE 98; RESP 22; TEMP 36.8; O2SAT 94
--- NOTE | 2020-04-20 15:52 | ECG_ITS ---
Measurements Intervals [place] Rate: 97 P: 30 [place]: 136 QRS: 65 QRSD: 145 T: -5 QT: 414 QTc: 528 Interpretive Statements SINUS RHYTHM VENTRICULAR PREMATURE COMPLEXES POSSIBLE LEFT ATRIAL ENLARGEMENT RIGHT BUNDLE BRANCH BLOCK ABNORMAL ECG Electronically Signed On 04-20-2020 19:33:42 CDT by Kota Cheney D.O.
--- NOTE | 2020-04-20 15:56 | ED.WEAKNESS ---
HPI - Weakness General Chief complaint: Weakness Stated complaint: WEAKNESS Time Seen by Provider: 04/20/20 15:46 Source: patient and EMS Mode of arrival: EMS Limitations: altered mental status History of Present Illness HPI Narrative: Patient presents via EMS from home for change in mental status lethargy and possible alcohol intoxication. He had one bout of emesis. He is not giving any history. He is a known alcoholic. He laughs at my jokes, and wants some dinner. I cannot get him to answer questions. Complaint: generalized weakness Related Data Allergies Allergy/AdvReac Type Severity Reaction Status Date / Time No Known Drug Allergies Allergy Unknown Other Verified 03/02/20 09:08 Review of Systems Review of Systems: Narrative: Cannot obtain a review of systems because of his altered mental status. 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 Iron deficiency anemia Irritable bowel syndrome with diarrhea Nicotine dependence Osteoarthritis Renal mass seen by urology 2018 with concern for RCC Sickle cell disease sickle cell trait Substance abuse Cocaine Surgical History Surgical History Hx of left knee surgery for sepetic arthritis 2009 Hx of spinal surgery Social History Social History Social History: Pt states that it takes about 3-4 days to smoke a pack of cigarettes. he has smoked most of his life. He still drinks alcohol but can not tell me how much or how often. he has a hx of drug use but no recent drug use. Full code listed. Smoking packs per day: 0.25 Smoking cigarettes per day: 5.0 Years smoked: 60 Smoking pack-years: 15.00 Smoking status: Current every day smoker Tobacco type: cigarettes Second hand tobacco smoke exposure: Yes Alcohol intake: current Drinks per week: 3 Substance use: former Gender identity (if verbalized by the patient): Male Spiritual care concerns: No Exam Narrative: Exam Narrative: GENERAL: Well-appearing, well-nourished, and in no acute distress. No spontaneous motion. HEAD: Normocephalic, atraumatic. EYES: PERRLA and EOMI. ENT: Nares clear, no rhinorrhea or epistaxis. Mucous membranes moist. Missing teeth. NECK: Supple. CHEST: Clear to auscultation. No respiratory distress. HEART: Regular rate and rhythm. No murmur heard. Normal peripheral pulses. ABDOMEN: Soft, nontender, nondistended, normal active bowel sounds. Fluid wave. EXTREMITIES: Normal range of motion. No edema. SKIN: Warm, dry, no rash. NEURO: No focal deficits. Alert. PSYCH: Normal mood and affect. Laughs. Course Reevaluation(s) Reevaluation #1: [id number] with the patient and his sister. She said he can went out on her, and then vomited several times. He seems much more awake now and wants some dinner. He says he has no pain and does not feel sick. He would like dinner as soon as possible. Date: 04/20/20 Time: 17:49 Reevaluation #2: Went back into the room to ask the patient how he was going to get home, and he said he would be unable to get home. He lives in an independent apartment building. He eventually wants to go home but says he will need a ride. I told him that he could arrange a ride. He says he cannot arrange. He has not yet had his dinner but he is quite awake and argumentative and I think ready for discharge. We will call an ambulance if he cannot get a ride. Date: 04/20/20 Time: 18:34 Vital Signs Vital signs: Vital Signs Temperature 98.3 F
[2020-04-20 16:02] VITALS: BP 105/64; PULSE 101; PULSE 99; RESP 27; O2SAT 93
[2020-04-20 16:09] LABS: Basophils Percent Auto 0.3 % (0.2-1.2); Eosinophils Absolute Auto 0.1 K/mm3 (0-0.3); Eosinophils Percent Auto 0.9 % (0-4.4); Hematocrit 28.5 % (42.0-52.0); Hemoglobin 9.3 g/dL (14.0-18.0); Immature Granulocyte Absolute 0.03 K/mm3 (0.00-0.031); Immature Granulocyte Percent A 0.5 % (0-0.5); Lymphocytes Absolute Auto 1.17 K/mm3 (0.9-3.2); Mean Corpuscular HGB Conc 32.6 g/dl (32-36); Mean Corpuscular Hemoglobin 31.4 pg (26-34); Mean Corpuscular Volume 96.3 fl (80-100); Mean Platelet Volume 10.2 fl (7.4-10.4); Monocytes Absolute Auto 0.6 K/mm3 (0.1-0.6); Monocytes Percent Auto 9.6 % (2.6-8.5); Neutrophils Percent Auto 68.7 % (45.5-73.1); Platelet Count Result 235 k/mm3 (150-375); Red Blood Count 2.96 M/mm3 (4.6-6.20); Red Cell Distribution Width 20.7 % (11.5-14.5); White Blood Count 5.9 K/mm3 (4.5-10.0)
[2020-04-20 16:20] LABS: Alanine Aminotransferase 10 U/L (4-50); Albumin Level 3.8 g/dL (3.5-5.1); Alkaline Phosphatase 76 U/L (38-126); Anion Gap 12 mmol/L (8-16); Aspartate Amino Transferase 38 U/L (17-59); Bilirubin,Total 0.6 mg/dL (0.2-1.3); Blood Urea Nitrogen 30 mg/dL (9-20); Calcium 8.7 mg/dL (8.4-10.2); Carbon Dioxide 24 mmol/L (22-30); Chloride 104 mmol/L (98-107); Estimated Glomerular Filt Rate 55; Glucose 104 mg/dL (75-110); Potassium 4.1 mmol/L (3.4-5.0); Sodium 140 mmol/L (137-145)
[2020-04-20 16:21] LABS: Ammonia < 9 umol/L (9-30); Ethanol 83 mg/dL (<10)
[2020-04-20 16:33] LABS: Add Urine Microscopic? YES; Appearance Urine Clear (Clear); Bilirubin Urine Negative (Negative); Blood Urine Negative (Negative); Color Urine Yellow (Yellow); Glucose Urine UA Negative (Negative); Ketones Urine Negative (Negative); Leukocyte Esterase Ur Negative LEU/UL (Negative); Mucus Urine Rare /lpf; Nitrate Urine Negative (Negative); Protein Urine Negative (Negative); RBC Urine 0-2 /hpf (0-2); Specific Grav Ur 1.014 (1.001-1.035); Squamous Epithelial Cell Urine Rare /hpf (Few); WBC Urine 0-3 /hpf
[2020-04-20 17:40] VITALS: BP 130/71; PULSE 96; RESP 16; O2SAT 93
[2020-04-20] MEDS: SODIUM CHLORIDE 0.9% IV 1,000 ML 999 ML IV CONT (18:01)
[2020-04-20 19:40] VITALS: BP 118/74; PULSE 94; RESP 16; O2SAT 97
--- NOTE | 2020-04-20 19:46 | PC.NURSE ---
called [facility] to request transport. ETA 25 minutes
[2020-04-20 20:19] VITALS: BP 124/76; PULSE 86; RESP 18; TEMP 36.8; O2SAT 95
== END 2020-04-20 20:20 | disposition home or self-care (01) ==
PROVIDERS: Emergency Provider Emergency Medicine; PCP Family Medicine
DX: F10.129 Alcohol abuse with intoxication, unspecified (principal); Y90.4 Blood alcohol level of 80-99 mg/100 ml; F17.210 Nicotine dependence, cigarettes, uncomplicated; D64.9 Anemia, unspecified; E53.8 Deficiency of other specified B group vitamins; J44.9 Chronic obstructive pulmonary disease, unspecified; E11.9 Type 2 diabetes mellitus without complications; I10 Essential (primary) hypertension; M10.9 Gout, unspecified; Z86.73 Personal history of transient ischemic attack (TIA), and cerebral infarction without residual deficits; M19.90 Unspecified osteoarthritis, unspecified site; D57.3 Sickle-cell trait; D50.9 Iron deficiency anemia, unspecified; I45.10 Unspecified right bundle-branch block
CPT/HCPCS: 36415; 51701; 70450; 71045; 80053; 80307; 81001; 82140; 85025; 93005; 96365; 96366; 99284; J3411; J3475; J7030; J7121

== ENCOUNTER 2020-08-30 18:21 | Observation (INO) | payer MEDICARE, MEDICAID, SELFPAY ==
[2020-08-30 18:21] VITALS: PULSE 98
[2020-08-30 18:34] VITALS: BP 126/69; PULSE 94; RESP 14; TEMP 36.2; O2SAT 96
[2020-08-30 18:43] LABS: Basophils Percent Auto 0.5 % (0.2-1.2); Eosinophils Absolute Auto 0.1 K/mm3 (0-0.3); Eosinophils Percent Auto 1.3 % (0-4.4); Immature Granulocyte Absolute 0.03 K/mm3 (0.00-0.031); Immature Granulocyte Percent A 0.4 % (0-0.5); Immature Platelet Fraction Pct 8.6 % (0.9-11.2); Lymphocytes Absolute Auto 1.31 K/mm3 (0.9-3.2); Lymphocytes Percent Auto 16.9 % (18.3-44.2); Mean Corpuscular Hemoglobin 20.3 pg (26-34); Mean Corpuscular Volume 78.1 fl (80-100); Mean Platelet Volume 11.3 fl (7.4-10.4); Monocytes Absolute Auto 0.9 K/mm3 (0.1-0.6); Monocytes Percent Auto 11.5 % (2.6-8.5); Neutrophils Absolute Auto 5.4 K/mm3 (1.3-6.7); Neutrophils Percent Auto 69.4 % (45.5-73.1); Nucleated Red Blood Cells Perc 0.5 % (0.0-0.2); Platelet Count Result 177 k/mm3 (150-375); Red Blood Count 2.56 M/mm3 (4.6-6.20); Red Cell Distribution Width 23.3 % (11.5-14.5); White Blood Count 7.8 K/mm3 (4.5-10.0)
[2020-08-30 18:51] LABS: Hemoglobin 5.2 g/dL (14.0-18.0)
[2020-08-30 18:52] LABS: Anisocytosis 1+ (NORMAL); Microcytosis 1+ (NORMAL); Platelet Estimate Adequate (Adequate)
[2020-08-30 18:53] LABS: Hypochromasia 2+ (NORMAL)
--- NOTE | 2020-08-30 18:53 | ED.GENADULT ---
HPI - General Adult General Chief complaint: Recheck/Abnormal Lab/Rx Stated complaint: weakness Time Seen by Provider: 08/30/20 18:22 Source: patient and EMS History of Present Illness HPI narrative: Patient is a 80 y/o male brought in by EMS for low H/H. Patient states that he feels fine. He had routine visit with his PCP yesterday and labs were drawn. He was sent in by PCP here because Hgb was 5.4 on labs done yesterday. He denies any bleeding. He did not notice any blood in stool or dark stool. He admits that he has been feeling weak for a while. Related Data Home Medications Medication Instructions Recorded Confirmed ergocalciferol (vitamin D2) 50,000 unit PO WEEKLY 08/30/20 08/30/20 folic acid 1 mg PO DAILY 08/30/20 08/30/20 hydrocodone-acetaminophen [[place]] 1 tablet PO PRN PRN 08/30/20 08/30/20 Allergies Allergy/AdvReac Type Severity Reaction Status Date / Time No Known Drug Allergies Allergy Unknown Other Verified 08/29/20 15:11 Review of Systems Constitutional: Constitutional: Denies chills, Denies fever(s) and Denies headache(s) Eyes: Eyes: Denies blurry vision ENT: Denies headache(s) and Denies neck pain Cardiovascular: Cardiovascular: Denies chest pain and Denies dyspnea Respiratory: Respiratory: Denies cough and Denies dyspnea Gastrointestinal: Gastrointestinal: Denies abdominal pain, Denies diarrhea, Denies nausea and Denies vomiting Genitourinary: Genitourinary: Denies hematuria and Denies dysuria Musculoskeletal: Musculoskeletal: Denies back pain and Denies neck pain Neurologic: Denies headache(s) and Reports weakness [facility] Past Medical History Medical History (Updated 08/30/20 @ 23:37 by María Gabriel MD) Anemia AVM (arteriovenous malformation) of small bowel, 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 Iron deficiency anemia Irritable bowel syndrome with diarrhea Nicotine dependence Osteoarthritis Renal mass seen by urology 2018 with concern for RCC Sickle cell disease sickle cell trait Substance abuse Cocaine Surgical History Surgical History Hx of left knee surgery for sepetic arthritis 2009 Hx of spinal surgery Family History Family History Mother Patient's mother is , Onset Age: 89 Family history of kidney disease, Onset Age: 78 Acute myocardial infarction, Onset Age: 89 Father Family history of malignant neoplasm Patient's father is Sibling Patient's brother is , Onset Age: 72 Acute myocardial infarction, Onset Age: 72 Social History Social History (Updated 08/30/20 @ 21:13 by Holly Bear DO) Social History: Pt states that it takes about 3-4 days to smoke a pack of cigarettes. he has smoked most of his life. He still drinks alcohol but can not tell me how much or how often. he has a hx of drug use but no recent drug use. Full code listed. Lives in assisted living facility. Smoking packs per day: 0.25 Smoking cigarettes per day: 5.0 Years smoked: 60 Smoking pack-years: 15.00 Smoking status: Current every day smoker Tobacco type: cigarettes Second hand tobacco smoke exposure: Yes Alcohol intake: unknown Substance use: unknown Living arrangements: assisted living Additional living arrangements comments: Has home health nurses Gender identity (if verbalized by the patient): Male Spiritual care concerns: No Exam Const: General: no acute distress and well
[2020-08-30 18:55] LABS: Anion Gap 13 mmol/L (8-16); Blood Urea Nitrogen 34 mg/dL (9-20); Calcium 9.1 mg/dL (8.4-10.2); Carbon Dioxide 18 mmol/L (22-30); Chloride 111 mmol/L (98-107); Estimated CRCL calculation 29 ml/min; Estimated Glomerular Filt Rate 44; Glucose 104 mg/dL (75-110); Potassium 4.8 mmol/L (3.4-5.0); Sodium 142 mmol/L (137-145)
[2020-08-30 20:00] VITALS: PULSE 109
--- NOTE | 2020-08-30 20:18 | PM.IMHP ---
H&P: HPI History of Present Illness Date/Time: 08/30/20 20:18 Chief Complaint: Generalized weakness, anemia Narrative: Rick Martinez is a 80 year old male and duodenal AVMs, rectal ulceration, iron deficiency anemia presents to the ED with complaints anemia. Patient was seeing his PCP for follow-up visit and incidentally found hemoglobin 5.4 on blood draw. He has been feeling some generalized weakness but otherwise asymptomatic. Patient at baseline is not very mobile, wheelchair-bound/bed-bound since a year and half ago. He lives in assisted living by himself with nurses that help with showers. He is able to transfer onto the toilet in a very wheelchair friendly facility. He has been living this facility and doing well. He has 3 adult sons who do not live nearby, his sister helps take care of him. He is trying to get paperwork for his sister to be his POA. Patient is full code. He has a history of GI bleed earlier this summer. Admitted 02/28/2022-03/05/2020 for upper GI bleed, EGD showed multiple AVMs colonoscopy found polyp with rectal ulcers, registered mail clerk Dr. Pickens. He was also in hypovolemic hemorrhagic shock. He had elevated troponins which was unclear if he had an ischemic episode. EF 40-45% inferior wall hypokinesis. Baseline creatinine 1.1. Patient has reported alcoholism history. During that admission he received 900 mg IV iron. Patient has history of sickle cell trait and renal mass. In the ED: Hemoglobin found to be 5.2 which is a drop of 0.2 from yesterday. Vitals stable. Labs stable perhaps some mild CHARLIE. Patient has known iron deficiency anemia and history of AVMs. Patient has been ordered 2 units of packed red blood cells. Patient will be admitted for anemia secondary to likely GI bleed. Review of Systems Review of Systems: Narrative: Constitutional: No Fever, No Chills, No Night Sweats, endorses generalized weakness. ENT/Mouth: No Hearing Changes, No Ear Pain, No Nasal Congestion, No Sinus Pain, No Hoarseness, No sore throat, No Rhinorrhea, No Swallowing Difficulty Eyes: No Eye Pain, No Redness, No Vision Changes Cardiovascular: No Chest Pain, No Palpitations, No Dyspnea on Exertion, No Orthopnea, No Claudication, No Edema Respiratory: No Cough, No Sputum, No Wheezing, No Shortness of Breath Gastrointestinal: No Nausea, No Vomiting, No Diarrhea, No Constipation, No Abdominal Pain, No Heartburn, No Hematochezia, No Melena Genitourinary: No Dysuria, No Urinary Frequency, No Hematuria, No Urinary Incontinence, No Urgency Musculoskeletal: No Arthralgias, No Myalgias, No Joint Swelling, No Joint Stiffness, No Back Pain Skin: No Skin Lesions, No Pruritis, No Hair Changes Neuro: No Numbness, No Paresthesias, No Loss of Consciousness, No Syncope, No Dizziness, No Headache. Nonambulatory at baseline. 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 Iron deficiency anemia Irritable bowel syndrome with diarrhea Nicotine dependence Osteoarthritis Renal mass seen by urology 2018 with concern for RCC Sickle cell disease sickle cell trait Substance abuse Cocaine Surgical History Surgical History Hx of left knee surgery for sepetic arthritis 2009 Hx of
[2020-08-30 20:29] LABS: Immature Reticulocyte Fraction 12.5 % (3.0-15.9); Reticulocyte Hemoglobin Conten 16.1 pg (28.2-35.7); Reticulocyte Percent 2.05 % (0.7-4.3); Reticulocytes Absolute 0.05 B/L (32.2-175.7)
[2020-08-30 20:33] LABS: Iron 17 ug/dL (49-181); Lactate Dehydrogenase 586 U/L (313-618)
[2020-08-30 20:34] VITALS: BP 121/73; PULSE 87; RESP 20; TEMP 36.3; O2SAT 97
[2020-08-30 20:40] LABS: Transferrin 375 mg/dL (206-381)
[2020-08-30 20:43] LABS: Percent Iron Saturation 3 % (20-50)
--- NOTE | 2020-08-30 21:07 | ADMGEN ---
This patient, Rick Martinez, was admitted to Medical Room 250-01. Patient/family oriented to hospital policies and general routines including ID bracelet, bed and alarms, visiting hours, pain management, procedures, bathroom and other care routines, personal items, smoking policy, room service/diet, and visiting hours. Information on how to activate the Rapid Response Team has been discussed. Patient/Family are encouraged to report perceived risks to care and to ask questions if they do not understand what they are told or what they should do.
[2020-08-30 21:12] LABS: Ferritin 8.54 ng/mL (11.1-264)
[2020-08-30 21:13] VITALS: BP 122/64; PULSE 82; RESP 16; TEMP 37; O2SAT 92
[2020-08-30 21:15] VITALS: BMI 25.2
[2020-08-30 22:00] VITALS: BP 114/59; PULSE 94; RESP 18; TEMP 36.6; O2SAT 98
[2020-08-31] VITALS (26 sets, daily range): BP systolic 102–136; BP diastolic 52–72; PULSE 65–97; RESP 14–20; TEMP 36–37; O2SAT 93–100; BMI 25.2
[2020-08-31] MEDS: SODIUM CHLORIDE 0.9% IV 250 ML 30 ML IV CONT (03:35)
[2020-08-31 06:42] LABS: Mean Corpuscular HGB Conc 28.7 g/dl (32-36); Mean Corpuscular Hemoglobin 22.6 pg (26-34); Mean Corpuscular Volume 78.6 fl (80-100); Mean Platelet Volume 10.7 fl (7.4-10.4); Platelet Count Result 170 k/mm3 (150-375); Red Blood Count 2.66 M/mm3 (4.6-6.20); White Blood Count 7.6 K/mm3 (4.5-10.0)
[2020-08-31 06:45] LABS: Hematocrit 20.9 % (42.0-52.0)
[2020-08-31 07:17] LABS: Chloride 110 mmol/L (98-107); Estimated CRCL calculation 30 ml/min; Estimated Glomerular Filt Rate 44; Potassium 5.2 mmol/L (3.4-5.0); Sodium 140 mmol/L (137-145)
[2020-08-31 07:26] LABS: Anion Gap 9 mmol/L (8-16); Blood Urea Nitrogen 32 mg/dL (9-20); Calcium 8.8 mg/dL (8.4-10.2); Carbon Dioxide 21 mmol/L (22-30); Glucose 118 mg/dL (75-110)
[2020-08-31] MEDS: FERROUS SULFATE 324 MG TABLET PO (08:07)
[2020-08-31] MEDS: FOLIC ACID 1 MG TABLET PO (08:07)
--- NOTE | 2020-08-31 10:15 | PM.IMPN ---
Progress Note: A&P Assessment and Plan (1) Anemia: Qualifiers: Anemia type: iron deficiency Iron deficiency anemia type: chronic blood loss Qualified Code(s): D50.0 - Iron deficiency anemia secondary to blood loss (chronic) Code(s): D64.9 - Anemia, unspecified Status: Acute Assessment and Plan: Patient with history of GI bleeding presents at instruction of PCP due to low Hgb on outpatient labs. Hgb as low as 5.2 yesterday, receiving 3 units packed RBC today. Monitor H&H closely and transfuse to keep Hgb > 7. Continue iron and folate supplementation. Continue IV protonix BID. (2) Acute upper GI bleed: Code(s): K92.2 - Gastrointestinal hemorrhage, unspecified Status: Suspected Assessment and Plan: See above. Last GI evaluation in March 2020 demonstrated duodenal AVM, rectal ulceration. Patient denies noticing any bleeding. Appreciate GI recommendations. Dr Wesley and Scarlett, [employer]IST in for Dr Pickens plan for endoscopy 09/01, NPO at midnight. (3) CHARLIE (acute kidney injury): Code(s): N17.9 - Acute kidney failure, unspecified Status: Acute Assessment and Plan: Cr a little above baseline compared to previous labs. Receiving blood today and will recheck renal function in AM. (4) Essential (primary) hypertension: Code(s): I10 - Essential (primary) hypertension Status: Chronic Assessment and Plan: BP stable on lower end. Lisinopril and metoprolol are held. (5) Nicotine dependence: Qualifiers: Nicotine product type: cigarettes Substance use status: uncomplicated Qualified Code(s): F17.210 - Nicotine dependence, cigarettes, uncomplicated Code(s): F17.200 - Nicotine dependence, unspecified, uncomplicated Status: Chronic Assessment and Plan: Tobacco cessation encouraged. Subjective Date/time seen: 08/31/20 0945 Interval history: Mr. Martinez is an 80yo M with history of GI bleeding admitted for severe anemia. He is a bit of a poor historian but reports he has not noticed any black or red bloody bowel movements. He tells me he has been feeling weak and tired for some time . Denies any abdominal pain. No dizziness. No nausea or vomiting. Review of Systems Review of Systems: All systems reviewed & are unremarkable except as noted in HPI and below Exam Narrative: Exam Narrative: General: Male resting supine in bed in no acute distress. HEENT: Normocephalic, EOMI, oral mucosa moist. Cardiovascular: Rate and rhythm are regular. Respiratory: Lungs clear to auscultation bilaterally. Respirations even and non-labored. Abdomen: Soft, non-tender, non-distended, bowel sounds present. Extremities: Peripheral pulses intact. No edema. Neuro: No focal neurological deficits. Speech is clear. Psych: Mood and affect are flat. Not very interactive. Objective Data Vital Signs Vital Signs: Last Vital Signs Temp 98.1 F 08/31/20 14:30 Pulse 65 08/31/20 14:30 Resp 16 08/31/20 14:30 BP 125/54 L 08/31/20 14:30 Pulse Ox 95 08/31/20 14:30 Intake/Output Intake/Output: Intake & Output 08/28/20 08/29/20 08/30/20 08/31/20 23:59 23:59 23:59 23:59 Intake Total 900 Balance 900 Meds/Results Medications: Active Medications Generic Name Dose Route Start Last Admin Trade Name Freq PRN Reason Stop Dose Admin Ferrous Sulfate 324 mg 08/31/20 08:00 08/31/20 08:07 Ferrous Sulfate 324 Mg Tablet PO 324 mg DAILY@0800 MAULIK Administration Folic Acid 1 mg 08/31/20 09:00 08/31/20 08:07 Folic Acid 1 Mg Tablet PO 1 mg DAILY MAULIK Administration Pantoprazole Sodium 40 mg 08/31/20 09:00 Pantoprazole Sodium Iv 40 Mg Vial IV PUSH QAM [facility] Labs Labs: Laboratory
[2020-08-31] MEDS: PANTOPRAZOLE SODIUM IV 40 MG VIAL IV PUSH ×2 (11:35→18:27)
--- NOTE | 2020-08-31 11:43 | WPDGICN ---
Assessment and Plan Additional Plan A. Microcytic Anemia with concerns for recurrent GI bleed -No evidence of active bleeding at this time -rule out gastric/duodenal AVMs as this was noted in 02/[address] Pickens which did require APC at that time. Could be concern for small bowel AVMs. -hgb 5.4/hct 20 on admission with noted hgb 6.o/hct 20.9 today, 08/31. -2 Units PRBC given, 1 more to give -iron 17, iron sat 3%, ferritin 8 -EGD 09/01/[address] Wesley. NPO after midnight. Hold AM blood thinners -Monitor H&H; transfuse as needed -PPI IV BID -Replace iron, consider IV venofer while inpatient -check b12, folate, Retic ct, and erythropoietin B. Hx of rectal ulcer -Rectal ulcer noted on colon 02/[address] Pickens -Biopsies showed active proctitis -Recommended per Dr. Pickens follow up outpatient. C. Personal hx of colon polyps -TA polyp noted on colon 02/2020 -Follow up as needed. The procedure of upper endoscopy, its indications, alternatives of barium studies and risks including perforation, bleeding, infection, reaction to medication as well as the possible need for blood or surgery were discussed with the patient. Patient voices understanding, agrees to proceed and provides informed consent. GI Consult Note Consult date/time: 08/31/20 11:43 HPI: GI Consultation JIMMY Blanco for Dr. Wesley on 31 August 2020 This is an 80 year old patient with a history of duodenal and gastric AVMs, rectal ulcer, adenomatous colon polyps, ELBERT, DM, COPD, hypertension, Gout, CVA, sickle cell trait, left knee surgery, and spinal surgery who now presents for evaluation of . Patient is seen at the request of the Hospitalist service to evaluate for anemia. His only complaint is generalized weakness. He was instructed by his PCP to go to ER for low hemoglobin of 5.4. He has received 2 units of blood thus far. I believe one additional unit is to be given. Please note patient has flat affect but denies abdominal pain, nausea or vomiting, trouble swallowing, bloating, loss of appetite or weight, early satiety, heartburn, diarrhea or constipation, rectal bleeding or melena. Denies family hx of GI maligancies. Patient denies fever, jaundice, scleral icterus, dark urine, light stool, itching, hot or cold intolerance, chest pain, shortness of breath at rest, hematuria, dysuria, new cough or visual changes, easy bruising, tingling of the skin, bone pain or tremors. He had EGD with Dr. Pickens 02/2020 and had gastric and duodenal angiectasias s/p APC. He had a colonoscopy 02/[address] Pickens and had rectal ulcer and tubular adenomatous colon polyp. Rectal ulcer biopsies did show active proctitis and it was thought this was r/t to stercoral ulcer. There was possible concern for AVMs further in small bowel potentially. No history of endocarditis, rheumatic fever, dental prophylaxis, heart valve surgery, bleeding disorder or joint replacement. 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 Iron deficiency anemia Irritable bowel syndrome with diarrhea Nicotine dependence Osteoarthritis Renal mass seen by urology 2018 with concern for RCC Sickle cell disease sickle cell trait Substance abuse Cocaine Surgical History Surgical History Hx of left knee surgery for sepetic arthritis 2009
[2020-08-31 11:47] LABS: Hemoglobin 7.5 g/dL (14.0-18.0)
[2020-08-31 14:05] LABS: Folic Acid 11.2 ng/mL (2.76->20)
--- NOTE | 2020-08-31 14:47 | PCOTNOTE ---
OT evaluation attempted. Patient receiving blood at this time. Will attempt OT evaluation at later time
--- NOTE | 2020-08-31 14:49 | PCPTNOTE ---
PT evaluation attempted. Patient receiving blood at this time. Will attempt PT evaluation at later time
[2020-08-31 17:10] LABS: Hematocrit 28.4 % (42.0-52.0); Hemoglobin 8.5 g/dL (14.0-18.0)
[2020-09-01] VITALS (12 sets, daily range): BP systolic 108–130; BP diastolic 52–72; PULSE 83–103; RESP 16–23; TEMP 36.3–37.2; O2SAT 92–99
[2020-09-01 05:54] LABS: Hematocrit 28.8 % (42.0-52.0); Hemoglobin 8.5 g/dL (14.0-18.0); Immature Platelet Fraction Pct 7.1 % (0.9-11.2); Mean Corpuscular HGB Conc 29.5 g/dl (32-36); Mean Corpuscular Hemoglobin 23.8 pg (26-34); Mean Corpuscular Volume 80.7 fl (80-100); Mean Platelet Volume 10.9 fl (7.4-10.4); Platelet Count Result 185 k/mm3 (150-375); Red Blood Count 3.57 M/mm3 (4.6-6.20); Red Cell Distribution Width 21.7 % (11.5-14.5); White Blood Count 8.7 K/mm3 (4.5-10.0)
[2020-09-01 06:10] LABS: Alanine Aminotransferase 12 U/L (4-50); Albumin Level 3.2 g/dL (3.5-5.1); Alkaline Phosphatase 75 U/L (38-126); Anion Gap 8 mmol/L (8-16); Aspartate Amino Transferase 23 U/L (17-59); Bilirubin,Total 1.1 mg/dL (0.2-1.3); Blood Urea Nitrogen 32 mg/dL (9-20); Calcium 8.8 mg/dL (8.4-10.2); Carbon Dioxide 21 mmol/L (22-30); Chloride 111 mmol/L (98-107); Estimated CRCL calculation 30 ml/min; Estimated Glomerular Filt Rate 44; Glucose 102 mg/dL (75-110); Magnesium 2.2 mg/dL (1.6-2.3); Sodium 140 mmol/L (137-145)
[2020-09-01 06:44] LABS: Band Neutrophils Percent 1 % (0-6); Basophils Absolute Manual 0.08 K/mm3 (0.0-0.1); Basophils Percent Manual 1 % (0-1); Eosinophils Absolute Manual 0.26 K/mm3 (0.02-0.5); Eosinophils Percent Manual 3 % (0-4); Hypochromasia 1+ (NORMAL); Lymphocytes Absolute Manual 0.95 K/mm3 (1.1-4.5); Monocytes Absolute Manual 0.52 K/mm3 (0.1-0.90); Monocytes Percent Manual 6 % (3-9); Neutrophils Absolute Manual 6.87 K/mm3 (1.3-6.7); Neutrophils Percent Manual 78 % (46-73); Ovalocytes 1+ (NORMAL); Total Cells Counted 100
[2020-09-01 06:45] LABS: Anisocytosis 1+ (NORMAL); Platelet Clumps Present; Platelet Estimate Adequate (Adequate)
--- NOTE | 2020-09-01 07:37 | WPDANESEPPF ---
Anes - Initial Pre Proc Eval Procedure: Operation Date: 09/01/20 11:00 Proposed Procedures p Esophagogastroduodenoscopy - Mehran Wesley MD Date/Time: 09/01/20 07:37 Surgeon: Pedro Bear DO Pre Op Diagnosis: severe anemia Patient Data Age: 80 Gender: M Height: 1.78 m Weight: 79.7 kg Last Vital Signs Temp 37.2 C 09/01/20 06:00 Pulse 86 09/01/20 06:00 Resp 16 09/01/20 06:00 BP 118/72 09/01/20 06:00 Pulse Ox 92 09/01/20 06:00 Allergies Allergy/AdvReac Type Severity Reaction Status Date / Time No Known Drug Allergies Allergy Unknown Other Verified 08/29/20 15:11 Home Medications Medication Instructions Recorded Confirmed Type colchicine 0.6 mg tablet 0.6 mg PO BID #60 tablet 10/02/19 08/30/20 Rx metoprolol succinate 25 mg 25 mg PO DAILY #30 tablet 10/02/19 08/30/20 Rx tablet,extended release 24 hr pantoprazole 20 mg tablet,delayed 20 mg PO QAM #30 tablet 10/02/19 08/30/20 Rx release ferrous sulfate 325 mg (65 mg See Rx Instructions .ROUTE 08/18/20 08/30/20 Rx iron) tablet .COMPLEX #30 tablet albuterol sulfate 90 mcg/actuation 1 puff INHALATION Q4H PRN #8.5 g 08/30/20 08/31/20 Rx aerosol inhaler allopurinol 100 mg tablet 100 mg PO BID #60 tablet 08/30/20 08/30/20 Rx ergocalciferol (vitamin D2) 50,000 unit PO WEEKLY 08/30/20 08/30/20 History folic acid 1 mg PO DAILY 08/30/20 08/30/20 History hydrocodone-acetaminophen [Dow] 1 tablet PO PRN PRN 08/30/20 08/30/20 History lisinopril 2.5 mg tablet 2.5 mg PO QAM #90 tablet 08/30/20 08/31/20 Rx Laboratory Tests 08/30/20 08/30/20 08/31/20 18:36 20:00 06:31 WBC RBC Hgb Hct MCV MCH MCHC RDW Plt Count MPV Immature Gran % (Auto) Neut % (Auto) Lymph % (Auto) [place] % (Auto) Eos % (Auto) Baso % (Auto) Lymph # (Auto) [place] # (Auto) Eos # (Auto) Baso # (Auto) Abs Immat Gran (auto) Absolute Neuts (auto) Absolute Nucleated RBC Total Counted Neutrophils % (Manual) Band Neutrophils % Lymphocytes % (Manual) Monocytes % (Manual) Eosinophils % (Manual) Basophils % (Manual) Nucleated RBC % Abs Neuts (Manual) Abs Lymphs (Manual) Abs Monocytes (Manual) Absolute Eos (Manual) Abs Basophils (Manual) Platelet Estimate Clumped Platelets % Immature Plt Fraction Hypochromasia Anisocytosis Ovalocytes Sodium Potassium Chloride Carbon Dioxide Anion Gap BUN Creatinine Estim Creat Clear Calc Estimated GFR Glucose Calcium Magnesium Erythropoietin Pending Total Bilirubin AST ALT Alkaline Phosphatase Total Protein Albumin Vitamin B12 556.0 pg/mL pg/mL (239-931) Folate 11.2 ng/mL ng/mL (2.76->20) Blood Type O Positive Antibody Screen Negative Enhanced Crossmatch See Detail 08/31/20 08/31/20 09/01/20 11:30 16:49 05:30 WBC 8.7 K/mm3 K/mm3 (4.5-10.0) RBC 3.57 M/mm3 L M/mm3 (4.6-6.20) Hgb 7.5 g/dL L g/dL 8.5 g/dL L g/dL 8.5 g/dL L g/dL (14.0-18.0) (14.0-18.0) (14.0-18.0) Hct 26.0 % L % 28.4 % L % 28.8 % L % (42.0-52.0) (42.0-52.0) (42.0-52.0) MCV 80.7 fl fl (80-100) MCH 23.8 pg L D pg (26-34) MCHC 29.5 g/dl L g/dl (32-36) RDW 21.7 % H % (11.5-14.5)
[2020-09-01] MEDS: LACTATED RINGERS 1,000 ML 150 ML IV CONT (11:18)
--- NOTE | 2020-09-01 12:28 | WPDGIPROGNO ---
Progress Note: A&P Additional Plan GI [place] 01 Sep 2020 No AP, N, V, BRBPR, melena VSS soft/NT Pertinent Labs: Hct 21->29. Ferritin 8. B12 556, folate 11. retic 2. Assessment and Plan: A. Iron deficiency anemia with concerns for recurrent GI bleed: -No evidence of active bleeding at this time -Likely has component of hemolysis secondary to SCT; Haptoglobin and Epo level pending -Needs evaluation for recurrent gastric/duodenal AVMs as this was noted in 02/[address] Pickens which did require APC -Hgb 5.4/hct 20 on admission with noted hgb 6.o/hct 20.9 today, 08/31. -3 Units PRBC given -iron 17, iron sat 3%, ferritin 8 -EGD 09/01/20 -Monitor H&H; transfuse as needed -PPI IV BID -Replace iron, consider IV venofer while inpatient B. Hx of rectal ulcer: -Rectal ulcer noted on colon 02/[address] Pickens -Biopsies showed active proctitis -Recommend Dr. Pickens follow up outpatient. C. Personal hx of colon polyps: -TA polyp noted on colon 02/2020 -Follow up per Dr. Pickens. Thanks, [facility] [phone] Subjective Date/time seen: 09/01/20 12:28 Objective Data Vital Signs Vital Signs: Vital Signs - 24 hr 08/31/20 12:30 08/31/20 13:30 08/31/20 14:30 Temperature 36.4 C 36.2 C L 36.7 C Pulse Rate 85 94 65 Respiratory Rate 16 16 16 Blood Pressure 122/66 136/63 125/54 L Pulse Oximetry 97 95 95 08/31/20 15:26 08/31/20 16:00 08/31/20 18:00 Temperature 36.4 C 36.6 C Pulse Rate 86 95 95 Respiratory Rate 14 16 Blood Pressure 108/72 113/64 Pulse Oximetry 98 99 08/31/20 20:59 08/31/20 21:35 09/01/20 00:00 Temperature 37.0 C Pulse Rate 95 94 94 Respiratory Rate 16 Blood Pressure 105/64 Pulse Oximetry 94 09/01/20 04:00 09/01/20 06:00 09/01/20 08:00 Temperature 37.2 C Pulse Rate 89 86 86 Respiratory Rate 16 Blood Pressure 118/72 Pulse Oximetry 92 09/01/20 10:00 09/01/20 11:22 Temperature 36.6 C 36.4 C L Pulse Rate 83 86 Respiratory Rate 20 18 Blood Pressure 124/52 L 128/69 Pulse Oximetry 99 94 Intake/Output Intake/Output: Intake & Output 08/29/20 08/30/20 08/31/20 09/01/20 23:59 23:59 23:59 23:59 Intake Total 2180 250 Output Total 225 Balance 1955 250 Meds/Results Medications: Active Medications Generic Name Dose Route Start Last Admin Trade Name Licoq PRN Reason Stop Dose Admin Ferrous Sulfate 324 mg 08/31/20 08:00 08/31/20 08:07 Ferrous Sulfate 324 Mg Tablet PO 324 mg DAILY@0800 MAULIK Administration Folic Acid 1 mg 08/31/20 09:00 08/31/20 08:07 Folic Acid 1 Mg Tablet PO 1 mg DAILY MAULIK Administration Lactated Ringer's 1,000 mls @ 150 mls/hr 09/01/20 07:10 09/01/20 11:18 Lr - Lactated Ringers Iv IV CONT 150 mls/hr .[id number] MAULIK Administration Pantoprazole Sodium 40 mg 08/31/20 17:00 08/31/20 18:27 Pantoprazole Sodium Iv 40 Mg Vial IV PUSH 40 mg BID MAULIK Administration Labs Labs: Laboratory Results - last 24 hr 08/30/20 08/31/20 08/31/20 18:36 06:31 16:49 WBC RBC Hgb 8.5 L Hct 28.4 L MCV MCH MCHC RDW Plt Count MPV Immature Gran % (Auto) Neut % (Auto) Lymph % (Auto) [place] % (Auto) Eos % (Auto) Baso % (Auto) Lymph # (Auto) [place] # (Auto) Eos # (Auto) Baso # (Auto) Abs Immat Gran (auto) Absolute Neuts (auto) Absolute Nucleated RBC Total Counted Neutrophils % (Manual) Band Neutrophils % Lymphocytes % (Manual) Monocytes % (Manual) Eosinophils % (Manual) Basophils % (Manual) Nucleated RBC % Abs Neuts (Manual) Abs Lymphs (Manual) Abs Monocytes (Manual) Absolute Eos (Manual) Abs Basophils (Manual) Platelet Estimate Clumped Platelets % Immature Plt Fraction Hypochromasia Anisocytosis Ovalocytes Sodium Potassium Chloride Carbon Dioxide Anion Gap BUN Creatinine Estim Creat Clear C
--- NOTE | 2020-09-01 12:42 | SUR.OPER ---
UPPER AND LOWER DENTURES REMOVED IN PRE-OP AND PLACED IN THE POST-OP AREA
--- NOTE | 2020-09-01 13:22 | PM.PROC ---
Procedure Note - Detailed Date of procedure: 09/01/20 Pre-op diagnosis: severe anemia Post-op diagnosis: same Procedure performed: EGD Implants: None. Anesthesia: MAC Surgeon: Mehran Wesley MD Estimated blood loss (mL): 0 Drains: No Pathology: none sent Complications: No immediate complications Condition: stable Disposition: floor Findings: MEHRAN WESLEY MD, FACG, FACP UPPER ENDOSCOPY 09-01-2020 INDICATION: Iron deficiency anemia with concerns for recurrent GI bleed. POST-OP: Small bowel angiodysplasia x 16, treated. SEDATION: Per anesthesia With the patient in the left lateral decubitus position, the Fujinon colonoscope was used to easily intubate the patient?s esophagus and advanced to the entire extent of the scope to what is likely proximal jejunum. Glucagon 1 mg was given prior to withdrawal. Careful inspection of the mucosa was made upon insertion and withdrawal of the endoscope with retroflexion in the stomach. FINDINGS: Esophagus: SC Jx at 40 cm. Esophagus is normal. No esophagitis, stricture, mass or Lehman?s. Stomach: Fundus, body and antrum normal. No ulceration, erosion, inflammation, AVM or malignancy. Duodenum/Jejunum: 16 small angiodysplasia seen in the small bowel (more proximally) and treated with the 7 Fr. Gold probe with complete thermal ablation. No complications, blood loss or implants. Assessment and Plan: A. Iron deficiency anemia with concerns for recurrent GI bleed: -No evidence of active bleeding at this time -Likely has component of hemolysis secondary to SCT; Haptoglobin and Epo level pending -16 small bowel AVM's treated -Consider repeat EGD in [address] Pickens -3 Units PRBC given -iron 17, iron sat 3%, ferritin 8 -Monitor H&H; transfuse as needed -PPI IV BID-> po daily Q am -Replace iron, consider IV venofer while inpatient->po as OP -Clears only today; advance diet tomorrow if stable B. Hx of rectal ulcer: -Rectal ulcer noted on colon 02/[address] Pickens -Biopsies showed active proctitis -Recommend Dr. Pickens follow up outpatient. C. Personal hx of colon polyps: -TA polyp noted on colon 02/2020 -Follow up per Dr. Pickens. Mehran Wesley M.D. [phone]
[2020-09-01] MEDS: PANTOPRAZOLE SODIUM IV 40 MG VIAL IV PUSH (14:12)
[2020-09-01] MEDS: FOLIC ACID 1 MG TABLET PO (14:12)
[2020-09-01] MEDS: FERROUS SULFATE 324 MG TABLET PO (14:12)
--- NOTE | 2020-09-01 14:30 | PM.IMPN ---
Progress Note: A&P Assessment and Plan (1) Anemia: Qualifiers: Anemia type: iron deficiency Iron deficiency anemia type: chronic blood loss Qualified Code(s): D50.0 - Iron deficiency anemia secondary to blood loss (chronic) Code(s): D64.9 - Anemia, unspecified Status: Acute Assessment and Plan: Patient with history of GI bleeding presents at instruction of PCP due to low Hgb on outpatient labs. Hgb as low as 5.2 yesterday, received 3 units 08/31. Hgb low but stable today. Monitor H&H closely and transfuse to keep Hgb > 7. Continue iron and folate supplementation. IV venofer today, possible discharge home tomorrow with oral iron if stable. (2) Acute upper GI bleed: Code(s): K92.2 - Gastrointestinal hemorrhage, unspecified Status: Suspected Assessment and Plan: See above. Last GI evaluation in March 2020 demonstrated duodenal AVM, rectal ulceration. Patient denies noticing any bleeding. Appreciate GI recommendations. EGD by Dr Wesley 09/01 today demonstrated small bowel angiodysplasia that was ablated. Noted recommendations to transition to oral PPI, clear liquid diet for now and advance tomorrow if stable. (3) CHARLIE (acute kidney injury): Code(s): N17.9 - Acute kidney failure, unspecified Status: Acute Assessment and Plan: Cr a little above baseline compared to previous labs. Continue to monitor. (4) Essential (primary) hypertension: Code(s): I10 - Essential (primary) hypertension Status: Chronic Assessment and Plan: BP stable on lower end. Resume home lisinopril and metoprolol in AM. (5) Nicotine dependence: Qualifiers: Nicotine product type: cigarettes Substance use status: uncomplicated Qualified Code(s): F17.210 - Nicotine dependence, cigarettes, uncomplicated Code(s): F17.200 - Nicotine dependence, unspecified, uncomplicated Status: Chronic Assessment and Plan: Tobacco cessation encouraged. Subjective Date/time seen: 09/01/20 0915 Interval history: Mr. Martinez is an 80yo M with history of GI bleeding admitted for severe anemia. He is a poor historian but notes he has not noticed black or bloody bowel movements, but hasn't really looked. Denies nausea or vomiting. Denies abdominal pain. To go down for EGD later this morning. Review of Systems Review of Systems: All systems reviewed & are unremarkable except as noted in HPI and below Exam Narrative: Exam Narrative: General: Male resting supine in bed in no acute distress. HEENT: Normocephalic, EOMI, oral mucosa moist. Cardiovascular: Rate and rhythm are regular. Respiratory: Lungs clear to auscultation bilaterally. Respirations even and non-labored. Abdomen: Soft, non-tender, non-distended, bowel sounds present. Extremities: Peripheral pulses intact. No edema. Neuro: No focal neurological deficits. Speech is clear. Psych: Mood and affect are flat. Not very interactive. Objective Data Vital Signs Vital Signs: Last Vital Signs Temp 97.4 F L 09/01/20 14:22 Pulse 86 09/01/20 14:22 Resp 18 09/01/20 14:22 BP 124/72 09/01/20 14:22 Pulse Ox 97 09/01/20 14:22 Intake/Output Intake/Output: Intake & Output 08/29/20 08/30/20 08/31/20 09/01/20 23:59 23:59 23:59 23:59 Intake Total 2180 550 Output Total 225 Balance 1955 550 Meds/Results Medications: Active Medications Generic Name Dose Route Start Last Admin Trade Name Freq PRN Reason Stop Dose Admin Ferrous Sulfate 324 mg 08/31/20 08:00 09/01/20 14:12 Ferrous Sulfate 324 Mg Tablet PO 324 mg DAILY@0800 MAULIK Administration Folic Acid 1 mg 08/31/20 09:00 09/01/20 14:12 Folic Acid 1 Mg Tablet PO 1 mg DAILY MAULIK Admin
[2020-09-01] MEDS: IRON SUCROSE COMPLEX 200 MG in SODIUM CHLORIDE 0.9% IV 50 ML 120 MG IVPB (16:40)
[2020-09-01] MEDS: allopurinoL 100 MG TABLET PO (16:40)
[2020-09-01] MEDS: COLCHICINE 0.6 MG TABLET PO (16:40)
[2020-09-02 05:06] VITALS: BP 106/53; PULSE 84; RESP 16; TEMP 36.4; O2SAT 96
[2020-09-02 05:49] LABS: Basophils Absolute Auto 0.1 K/mm3 (0.0-0.1); Basophils Percent Auto 0.5 % (0.2-1.2); Eosinophils Absolute Auto 0.3 K/mm3 (0-0.3); Eosinophils Percent Auto 2.6 % (0-4.4); Hematocrit 30.7 % (42.0-52.0); Hemoglobin 8.9 g/dL (14.0-18.0); Immature Granulocyte Absolute 0.08 K/mm3 (0.00-0.031); Immature Granulocyte Percent A 0.8 % (0-0.5); Lymphocytes Absolute Auto 0.86 K/mm3 (0.9-3.2); Lymphocytes Percent Auto 8.7 % (18.3-44.2); Mean Corpuscular Hemoglobin 23.4 pg (26-34); Mean Corpuscular Volume 80.8 fl (80-100); Mean Platelet Volume 11.5 fl (7.4-10.4); Monocytes Absolute Auto 1.1 K/mm3 (0.1-0.6); Monocytes Percent Auto 11.3 % (2.6-8.5); Neutrophils Absolute Auto 7.5 K/mm3 (1.3-6.7); Neutrophils Percent Auto 76.1 % (45.5-73.1); Nucleated Red Blood Cells Perc 0.2 % (0.0-0.2); Platelet Count Result 262 k/mm3 (150-375); Red Cell Distribution Width 22.5 % (11.5-14.5); White Blood Count 9.8 K/mm3 (4.5-10.0)
[2020-09-02 06:08] LABS: Anion Gap 7 mmol/L (8-16); Blood Urea Nitrogen 26 mg/dL (9-20); Calcium 8.8 mg/dL (8.4-10.2); Carbon Dioxide 21 mmol/L (22-30); Chloride 113 mmol/L (98-107); Estimated CRCL calculation 36 ml/min; Estimated Glomerular Filt Rate 54; Glucose 119 mg/dL (75-110); Magnesium 2.1 mg/dL (1.6-2.3); Potassium 4.5 mmol/L (3.4-5.0); Sodium 141 mmol/L (137-145)
--- NOTE | 2020-09-02 07:07 | WPDANESPN ---
Anes - Prog Note Post-Op Date/Time: 09/02/20 07:07 Cardiovascular status: normal Respiratory status: normal Airway patency: baseline Mental status: baseline Post-Op hydration status: normal Vital Signs: Last Vital Signs Temp 36.4 C L 09/02/20 05:06 Pulse 84 09/02/20 05:06 Resp 16 09/02/20 05:06 BP 106/53 L 09/02/20 05:06 Pulse Ox 96 09/02/20 05:06 Pain Score (VAS): 0 I/O: Intake & Output 09/01/20 09/01/20 09/02/20 15:59 23:59 07:59 Intake Total 300 560 240 Output Total 200 400 Balance 300 360 -160 Laboratory Tests 09/02/20 05:20 09/02/20 09/02/20 05:20 05:20 WBC Pending RBC Pending Hgb Pending Hct Pending MCV Pending MCH Pending MCHC Pending RDW Pending Plt Count Pending MPV Pending Immature Gran % (Auto) Pending Neut % (Auto) Pending Lymph % (Auto) Pending [place]bert % (Auto) Pending Eos % (Auto) Pending Baso % (Auto) Pending Lymph # (Auto) Pending [place]bert # (Auto) Pending Eos # (Auto) Pending Baso # (Auto) Pending Abs Immat Gran (auto) Pending Absolute Neuts (auto) Pending Absolute Nucleated RBC Pending Nucleated RBC % Pending Sodium 141 Potassium 4.5 Chloride 113 H Carbon Dioxide 21 L Anion Gap 7 L BUN 26 H Creatinine 1.50 H Estim Creat Clear Calc 36 Estimated GFR 54 L Glucose 119 H Calcium 8.8 Magnesium 2.1 Post-procedural complaints: none Patient Feedback: Patient satisfied with anesthetic care.
[2020-09-02 07:15] LABS: Large Platelets Present; Ovalocytes 2+ (NORMAL); Platelet Estimate Adequate (Adequate)
[2020-09-02 07:16] LABS: Burr Cells 1+ (NORMAL); Hyperchromasia 2+ (NORMAL); Tear Drop Cells 1+ (NORMAL)
[2020-09-02 07:17] LABS: Schistocytes 1+ (NORMAL)
[2020-09-02] MEDS: allopurinoL 100 MG TABLET PO ×2 (09:05→16:30)
[2020-09-02] MEDS: PANTOPRAZOLE 40 MG TABLET PO (09:05)
[2020-09-02] MEDS: FOLIC ACID 1 MG TABLET PO (09:05)
[2020-09-02] MEDS: COLCHICINE 0.6 MG TABLET PO ×2 (09:05→16:30)
[2020-09-02 09:06] VITALS: PULSE 88
[2020-09-02] MEDS: METOPROLOL SUCCINATE EXT REL 25 MG TABCR PO (09:06)
[2020-09-02 10:00] VITALS: BP 119/54; PULSE 94; RESP 16; TEMP 36.8; O2SAT 98
--- NOTE | 2020-09-02 10:34 | WPDGIPROGNO ---
Progress Note: A&P Additional Plan GI Lupillo henderson Nelia 02 Sep 2020 No gi complaints and no reports or melena or BRBPR VSS soft/NT Hct 31 Assessment and Plan: A. 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 Pickens -3 Units PRBC given -iron 17, iron sat 3%, ferritin 8 -Monitor H&H; transfuse as needed -PPI IV BID-> po daily Q am -IV venofer while inpatient->po as OP -Advance diet B. Hx of rectal ulcer: -Rectal ulcer noted on colon 02/[address] Pickens -Biopsies showed active proctitis -Recommend Dr. Pickens follow up outpatient. C. Personal hx of colon polyps: -TA polyp noted on colon 02/2020 -Follow up per Dr. Pickens. Case discussed with OBDULIA Fay. Disppascual per Hospitalist service. Follow-up with Dr. Pickens in 2-3 weeks. Mehran Wesley M.D. [phone] Subjective Date/time seen: 09/02/20 10:34 Objective Data Vital Signs Vital Signs: Vital Signs - 24 hr 09/01/20 11:22 09/01/20 13:14 09/01/20 13:23 Temperature 36.4 C L Pulse Rate 86 97 95 Respiratory Rate 18 16 22 H Blood Pressure 128/69 113/66 108/68 Pulse Oximetry 94 95 96 09/01/20 13:34 09/01/20 14:22 09/01/20 17:44 Temperature 36.3 C L 36.9 C Pulse Rate 91 86 94 Respiratory Rate 23 H 18 18 Blood Pressure 115/68 124/72 130/71 Pulse Oximetry 94 97 97 09/01/20 22:00 09/02/20 05:06 09/02/20 09:06 Temperature 36.4 C L 36.4 C L Pulse Rate 103 H 84 88 Respiratory Rate 20 16 Blood Pressure 119/61 106/53 L Pulse Oximetry 94 96 09/02/20 10:00 Temperature 36.8 C Pulse Rate 94 Respiratory Rate 16 Blood Pressure 119/54 L Pulse Oximetry 98 Intake/Output Intake/Output: Intake & Output 08/30/20 08/31/20 09/01/20 09/02/20 23:59 23:59 23:59 23:59 Intake Total 2180 1110 540 Output Total 225 200 675 Balance 1955 910 -135 Meds/Results Medications: Active Medications Generic Name Dose Route Start Last Admin Trade Name Freq PRN Reason Stop Dose Admin Albuterol 1 puff 09/01/20 14:56 Albuterol Sulfate (*Sp) Aerosol 1 Puff INHALATION QIDRT PRN shortness of breath or wheezing Allopurinol 100 mg 09/01/20 17:00 09/02/20 09:05 Allopurinol 100 Mg Tablet PO 100 mg BID [facility] Administration Colchicine 0.6 mg 09/01/20 17:00 09/02/20 09:05 Colchicine 0.6 Mg Tablet PO 0.6 mg BID MAULIK Administration Ferrous Sulfate 324 mg 08/31/20 08:00 09/01/20 14:12 Ferrous Sulfate 324 Mg Tablet PO 324 mg DAILY@0800 [facility] Administration Folic Acid 1 mg 08/31/20 09:00 09/02/20 09:05 Folic Acid 1 Mg Tablet PO 1 mg DAILY MAULIK Administration Lisinopril 2.5 mg 09/02/20 09:00 09/02/20 09:04 Lisinopril 2.5 Mg Tablet PO Not Given QAM [facility] Metoprolol Succinate 25 mg 09/02/20 09:00 09/02/20 09:06 Metoprolol Succinate Ext Rel 25 Mg Tabcr PO 25 mg DAILY [facility] Administration Pantoprazole Sodium 40 mg 09/02/20 09:00 09/02/20 09:05 Pantoprazole 40 Mg Tablet PO 40 mg QAM MAULIK Administration Labs Labs: Laboratory Results - last 24 hr 09/02/20 09/02/20 05:20 05:20 WBC 9.8 RBC 3.80 L Hgb 8.9 L Hct 30.7 L MCV 80.8 MCH 23.4 L MCHC 29.0 L RDW 22.5 H Plt Count 262 MPV 11.5 H Immature Gran % (Auto) 0.8 H Neut % (Auto) 76.1 H Lymph % (Auto) 8.7 L Waller % (Auto) 11.3 H Eos % (Auto) 2.6 Baso % (Auto) 0.5 Lymph # (Auto) 0.86 L Waller # (Auto) 1.1 H Eos # (Auto) 0.3 Baso # (Auto) 0.1 Abs Immat Gran (auto) 0.08 H Absolute Neuts (auto) 7.5 H Absolute Nucleated RBC 0.0 N
[2020-09-02] MEDS: EPOETIN ALFA-EPBX 10,000 UNITS/ML VIAL 10000 UNITS IV PUSH (11:08)
[2020-09-02] MEDS: IRON SUCROSE COMPLEX 200 MG in SODIUM CHLORIDE 0.9% IV 50 ML 120 MG IVPB (11:09)
--- NOTE | 2020-09-02 12:23 | PM.DS ---
DS: Admitting Diagnosis Admitting Diagnosis Admitting Diagnosis: Anemia DS: Discharge Diagnosis Discharge Diagnosis (1) Anemia: Qualifiers: Anemia type: iron deficiency Iron deficiency anemia type: chronic blood loss Qualified Code(s): D50.0 - Iron deficiency anemia secondary to blood loss (chronic) Code(s): D64.9 - Anemia, unspecified Status: Acute Assessment and Plan: Date of Admission 08/31/20 Date of Discharge 09/02/20 Mr. Martinez is an 80yo M with history of duodenal AVMs, rectal ulceration, sickle cell trait, and iron deficiency who presented to the ED at the instruction of his primary care provider due to low hemoglobin on outpatient labs. He had been feeling some generalized weakness but otherwise asymptomatic. Notes he has been bed-bound/wheelchair-bound for about the last 1.5 years. His Hgb was as low as 5.2 here at our facility and he received 3 units of packed RBC transfusion 08/31, after which Hgb remained low but stable. He was evaluated by GI, Dr Wesley, and underwent EGD 09/01/20 which demonstrated sixteen small AVM in the proximal small bowel treated with Gold probe thermal ablation. He is a patient of Dr Pickens's and earlier this year in February 2020 had AVMs, rectal ulceration, and polyps noted on GI evaluation. Iron was replaced parenterally in the hospital and he will continue his oral supplementation and PPI at discharge. He was also treated with a dose of epogen. He is a bit of a poor historian and unmotivated, poor insight of his medical conditions. He is hemodynamically stable for discharge 09/02/20 with instructions to follow up with Dr Pickens. Other labs pending at discharge include Hgb electrophoresis, haptoglobin, epo level. Patient with history of GI bleeding presents at instruction of PCP due to low Hgb on outpatient labs. Hgb as low as 5.2, received 3 units 08/31. Hgb low but stable today. Continue iron and folate supplementation. (2) Acute upper GI bleed: Code(s): K92.2 - Gastrointestinal hemorrhage, unspecified Status: Suspected Assessment and Plan: See above. Last GI evaluation in March 2020 demonstrated duodenal AVM, rectal ulceration. Patient denies noticing any bleeding. Appreciate GI recommendations. EGD by Dr Wesley 09/01 demonstrated 16 small bowel angiodysplasiaa that were ablated. (3) CHARLIE (acute kidney injury): Code(s): N17.9 - Acute kidney failure, unspecified Status: Acute Assessment and Plan: Cr a little above baseline compared to previous labs. (4) Essential (primary) hypertension: Code(s): I10 - Essential (primary) hypertension Status: Chronic Assessment and Plan: BP stable on lower end. Continued on home lisinopril and metoprolol. (5) Nicotine dependence: Qualifiers: Nicotine product type: cigarettes Substance use status: uncomplicated Qualified Code(s): F17.210 - Nicotine dependence, cigarettes, uncomplicated Code(s): F17.200 - Nicotine dependence, unspecified, uncomplicated Status: Chronic Assessment and Plan: Tobacco cessation encouraged. DS: Summary Hospital Course Hospital Course: See above. Time Spent with Patient Time attestation: Total time spent providing and/or coordinating discharge services: 40 minutes Exam Narrative: Exam Narrative: General: Male resting supine in bed in no acute distress. HEENT: Normocephalic, EOMI, oral mucosa moist. Cardiovascular: Rate and rhythm are regular. Respiratory: Lungs clear to auscultation bilaterally. Respirations even and non-labored. Abdomen: Soft, non-tender, non-distended, bowel sounds present. Extremities:
[2020-09-02 14:00] VITALS: BP 108/55; PULSE 96; RESP 18; TEMP 37; O2SAT 95
[2020-09-02 18:00] VITALS: BP 116/66; PULSE 91; RESP 16; TEMP 37.2; O2SAT 98
[2020-09-06 11:33] LABS: Haptoglobin 124 mg/dL (43-212)
== END 2020-09-02 19:40 | disposition home health service (06) ==
LOC: ANHED 20:47 → ANH2MED 22:53
PROVIDERS: Internal Medicine Gastroenterology; Nurse Practitioner; Physician Assistant; Admitting Provider Student in an Organized Health Care Education/Training Program; Emergency Provider Emergency Medicine; PCP Family Medicine; Visit Provider Family Medicine
PROC: 0DJ08ZZ Inspection of Upper Intestinal Tract, Via Natural or Artificial Opening Endoscopic (ICD-10-PCS; CPT 43235; principal; 2020-09-01 11:00)
DX: D50.0 Iron deficiency anemia secondary to blood loss (chronic) (principal); K55.20 Angiodysplasia of colon without hemorrhage; R53.1 Weakness; F17.210 Nicotine dependence, cigarettes, uncomplicated; D57.3 Sickle-cell trait; N28.89 Other specified disorders of kidney and ureter; N17.9 Acute kidney failure, unspecified; Z23 Encounter for immunization; Z86.73 Personal history of transient ischemic attack (TIA), and cerebral infarction without residual deficits
CPT/HCPCS: 43255; 36415; 36430; 80048; 80053; 82607; 82668; 82728; 82746; 83010; 83021; 83540; 83550; 83615; 83735; 84466; 85014; 85018; 85025; 85027; 85046; 85055; 86850; 86900; 86901; 86902; 86922; 90471; 90653; 96361; 96374; 96376; 97161; 97165; 99285; A9270; C9113; G0008; G0378; J1756; J2704; J7050; J7120; P9016; Q5106